=== PATIENT | female | born 1980 | race African-American/Black ===

== ENCOUNTER → 2016-04-01 | Outpatient (CLI) | payer OTHER ==
[2016-01-27 20:58] VITALS: BP 157/85
[~2016-04-01] MED LIST: BENA1TAB6; CALC-98; CYCL10TA2; CYCL5TAB PO; DULO60CA6 PO; HYDR-2762 PO; IBUP-1060; L-NO1TBD14 PO; LEVE10007 PO; LORA10CA; METH4TAB2 PO; MULT-212 PO; NAPR500T8 PO; NITR100C62 PO; OLME1TAB PO; OMEP40CA5; OMEP40CA5 PO; ONDA4TAB7 PO; SIMV40TA3; SIMV40TA3 PO
[2016-04-01 14:53] LABS: % SAT IRON 17 % (15-34); IRON,SERUM 62 ug/dL (50-170)
== END | disposition home or self-care (01) ==
LOC: LAB 13:35
PROVIDERS: ATTEND Internal Medicine Cardiovascular Disease
DX: D64.9 Anemia, unspecified (principal)
CPT/HCPCS: 36415; 82728; 83540; 83550

== ENCOUNTER 2016-04-08 10:21 | Day surgery (SDC) | payer OTHER ==
--- NOTE | 2016-04-07 17:20 | PDOC1 ---
History and Physical Date of Admission Date of Admission DATE: 04/08/16 Identification/Chief Complaint Chief Complaint right knee pain Source Source: Chart review History of Present Illness History of Present Illness Darlene is a 35 year old woman with right knee pain. On 01/27/16 she was leaving work and stepped off the curb and twisted her knee. She immediately went to [facility] Emergency room. They took x-rays and gave her Naprosyn , they informed her she sprained her knee and to follow up with our office. She was last seen here 10/15/15, she had bilateral knee corticosteroid injections. Those injections provided her symptomatic pain relief for about 1 week. She had a right knee MRI on 03/08/15 that showed a medial meniscus tear that she has been managed nonoperatively with periodic cortisone injections. She is now having mechanical symptoms of the meniscus tear with frequent popping, locking, and instability. The pain is along the medial joint line and is dull at rest and sharp with certain movements. The pain is rated at a 4/10 at rest and is an 8/10 at its worst, aggravating by weightbearing. She denies any associating tingling or numbness. Past Medical History Cardiovascular: No pertinent hx Pulmonary: No pertinent hx CENTRAL NERVOUS SYSTEM: Seizure, Other (viral encephalitis - 04/2010) GI: GERD Heme/Onc: Anemia NOS, Iron deficiency Anemia Hepatobiliary: Other Psych: Depression Musculoskeletal: low back pain, Osteoarthritis Rheumatologic: No pertinent hx Renal/: No pertinent hx, UTI Endocrine: No pertinent hx Past Surgical History Past Surgical History: Other (right CTR) Family History Family History: Cancer, Diabetes, High Cholestrol, Hypertension Social History Smoke: No ALCOHOL: rare Drugs: None Current Medications Current Medications Current Medications Ondansetron HCl (Zofran) 4 mg PRN Q6HRS PRN IV Nausea; Start 04/08/16 at 07:00 ; Stop 04/09/16 at 06:59 Fentanyl Citrate (Fentanyl 2ml Vial) 25 mcg PRN Q5MIN PRN IV MILD PAIN; Start 04/08/16 at 07:00; Stop 04/09/16 at 06:59 Fentanyl Citrate (Fentanyl 2ml Vial) 50 mcg PRN Q5MIN PRN IV MODERATE PAIN; Start 04/08/16 at 07:00; Stop 04/09/16 at 06:59 Morphine Sulfate 1 mg 1 mg PRN Q10MIN PRN IV SEVERE PAIN; Start 04/08/16 at 07: 00; Stop 04/09/16 at 06:59 Lactated Ringer's (Iv Lactated Ringers) 1,000 ml @ 30 mls/hr Q24H IV ; Start at 07:00; Stop 04/08/16 at 18:59 Lidocaine HCl 2 ml 1X PRN PRN ID IV START; Start 04/08/16 at 07:00; Stop at 06:59 Hydromorphone HCl (Dilaudid) 0.5 mg PRN Q10MIN PRN IV SEVERE PAIN, Second choice; Start 04/08/16 at 07:00; Stop 04/09/16 at 06:59 Prochlorperazine Edisylate (Compazine) 5 mg PACU PRN PRN IV NAUSEA; Start 04/08 at 07:00; Stop 04/09/16 at 06:59 Active Scripts Active Naproxen 500 Mg Tablet.dr 1 Tab PO BID Reported Ferrous Sulfate 325 Mg Tablet 1 Tab PO BID Loratadine 10 Mg Tablet 90 Mg Benicar Hct 20-12.5 Mg Tablet (Olmesartan/Hydrochlorothiazide) 1 Each Tablet 1 Tab PO DAILY Simvastatin 40 Mg Tablet 1 Tab PO QHS Cymbalta (Duloxetine Hcl) 60 Mg Capsule.dr 1 Cap PO DAILY Omeprazole 40 Mg Capsule.dr 1 Cap PO DAILY Hydrocodone-Apap 7.5-325 (Hydrocodone Bit/Acetaminophen) 1 Each Tablet 1 Tab PO BID PRN Women's Daily Multivitamin (Multivit With Calcium,Iron,Min) 1 Each Tablet 1 Each PO DAILY Calcium + Vitamin D Tablet (Calcium Carbonate/Vitamin D3) 1 Each Tablet DAILY Levetiracetam 1,000 Mg Tablet 1,500 Mg PO BID Allergies Allergies: Coded Allergies: cefditoren (Verified Allergy, Severe, Swelling, 04/04/16) Sulfa (Sulfonamide Antibiotics) (Verified Allergy, Intermediate, Swelling , 04/04/16) ciprofloxacin (Verified Allergy, Intermediate, Swelling, 04/04/16) sulfamethoxazole (Verified Allergy, Intermediate, Swelling, 04/04/16) trimethoprim (Verified Allergy, Intermediate, Swelling, 04/04/16) Physical Exam General: Alert, Oriented X3, Cooperative, No acute distress HEENT: Atraumatic, EOMI Lungs: Normal air movement Heart: RRR Abdomen: Soft Extremities: No clubbing, No cyanosis, Normal pulses, Other (Upon inspection of the right knee, there are no masses. Due to her body habitus, an effusion is difficult to rule out. Mild varus alignment. The right knee shows active range of motion from 3-115 degrees. There is mild crepitus felt with motion and pain at the extremes of motion. There is tenderness to palpation along the medial joint line. The knee is stable to varus and valgus stress, without subluxation or laxity. Quadriceps and hamstring show normal strength of 5/5, with normal muscle tone. Medial Latha's is positive. Ariana testing shows an intact ACL with a firm endpoint. ) Skin: No rashes, No breakdown, No significant lesion Neuro: Normal speech, Sensation intact Psych/Mental Status: Mental status NL, Mood NL VTE Prophylaxis Ordered VTE Prophylaxis Devices: Yes VTE Pharmacological Prophylaxi: Yes Assessment/Plan Assessment/Plan Findings were reviewed and treatment options were discussed with the patient. She had a known medial meniscus tear by MRI on 03/08/15 that has been managed nonoperatively with periodic cortisone injections and home exercises. With her recent twisting injury, she is now having mechanical symptoms. I recommended right knee arthroscopy with medial meniscectomy. We discussed the potential risks of arthroscopic surgery, including risks of bleeding, infection, progressive arthritis, blood clots, or other potential surgical or anesthetic complications. All of her questions were answered and she desires to proceed with surgery. Due to her BMI of 58.89, she is at higher risk for surgery, so this will be done at [facility]. We will schedule this for a mutually convenient date. NIKHIL MATTHEWS Apr 07, 2016 17:20
[~2016-04-08 10:21] MED LIST changes: +BUPIVACAINE-EPI 0.25%-1:200000 50 ML VIAL. ONE; +DULO60CA44; +EPINEPHRINE 30 MG/30 ML VIAL. ONE; +FENTANYL PF 100 MCG/2 ML VIAL. IV PRN; +FERR-26 PO; +HYDROMORPHONE 2 MG/ML VIAL. IV PRN; +IV RINGERS,LACTATED 1000ML 1,000 ML IV SCH; +LIDOCAINE 1% 1 ML SYRINGE. ID PRN; +LORA10TA3; +MORPHINE SULFATE 2 MG/ML DISP.SYRIN. IV PRN; +NAPR500T3; +ONDANSETRON PF 4 MG/2 ML VIAL. IV PRN; +PROCHLORPERAZINE 10 MG/2 ML VIAL. IV PRN
[2016-04-08] MEDS ORDERED: PROM25VI5 PO (10:59)
[2016-04-08 11:07] LABS: BASO # 0.1 x10^3/uL (0.0-0.2); BASO % 1 % (0-3); EOS % 4 % (0-3); HEMATOCRIT 38.2 % (36.0-47.0); HEMOGLOBIN 12.2 g/dL (12.0-15.5); LYMPH # 2.1 x10^3/uL (1.0-4.8); LYMPH % 27 % (24-48); MEAN CORPUSCULAR HEMOGLOBIN 22 pg (25-35); MEAN CORPUSCULAR HGB CONC 32 g/dL (31-37); MEAN CORPUSCULAR VOLUME 70 fL (79-100); MONO % 10 % (0-9); NEUT % 58 % (31-73); PLATELET COUNT 260 x10^3/uL (140-400); RED BLOOD COUNT 5.47 x10^6/uL (3.50-5.40); RED CELL DISTRIBUTION WIDTH 15.3 % (11.5-14.5); WHITE BLOOD COUNT 7.9 x10^3/uL (4.0-11.0)
[2016-04-08 11:08] LABS: CALCIUM 9.1 mg/dL (8.5-10.1); CREATININE 0.7 mg/dL (0.6-1.0); GFR 115.9; POTASSIUM 3.7 mmol/L (3.5-5.1)
[2016-04-08 11:23] LABS: NEG OBC UR NEG; POS OBC UR POS
[2016-04-08] MEDS ORDERED: FENTANYL PF 250 MCG/5 ML VIAL. ONE (11:28)
[2016-04-08] MEDS ORDERED: PROPOFOL 20 ML IV ONE (11:28)
[2016-04-08] MEDS ORDERED: LIDOCAINE 2% 100 MG/5 ML DISP.SYRIN. ONE (11:28)
[2016-04-08] MEDS ORDERED: DEXAMETHASONE SOD PHOS 20 MG/5 ML VIAL. ONE (11:28)
[2016-04-08] MEDS ORDERED: MIDAZOLAM HCL 2 MG/2 ML VIAL. ONE (11:28)
[2016-04-08] MEDS ORDERED: ONDANSETRON PF 4 MG/2 ML VIAL. ONE (11:28)
[2016-04-08] MEDS ORDERED: CEFAZOLIN 1GM IVPB FOR OMNI 50 ML IV ONE ×2 (12:28→14:54)
[2016-04-08] MEDS ORDERED: LIDOCAINE 1% / SOD BICARB 8.4% 20 ML VIAL. IJ ONE ×2 (12:44→13:30)
[2016-04-08 12:54] LABS: PLT ESTIMATE ADEQUATE (ADEQUATE)
[2016-04-08 12:56] LABS: ANISOCYTOSIS PRESENT; HYPOCHROMIA MOD; MICROCYTOSIS MARKED
--- NOTE | 2016-04-08 13:32 | PDOC ---
Exam Sole Leather Cutting Machine Operator Sole Leather Cutting Machine Operator Joseph Mammography Technologist Mammography Technologist Samanta Mcclellan Pre-Procedure Diagnosis Pre-Procedure Diagnosis Right knee pain with meniscal tear. Right knee arthroscopy planned today---no IV access Post-Procedure Diagnosis Post-Procedure Diagnosis Same Procedure Performed Procedure Performed Sono/fluoro guided Power Picc insertion Type of Anesthesia Type of Anesthesia Local Estimated Blood Loss EBL: Minimal Drain/Tubes Drains/Tubes Right brachial vein 5F 2L 45cm Power Picc Condition of Patient Condition of Patient Stable. No apparent complication. Disposition Disposition From IR to OR holding. OK to use Power Picc for blood draws and infusions. Full report to follow. NELSON VARGAS MD Apr 08, 2016 13:32
[2016-04-08] MEDS ORDERED: HYDR-2680 PO (14:39)
[2016-04-08] MEDS ORDERED: CEFAZOLIN 2GM PREMIX 50 ML IV PRN (15:00)
[2016-04-08] MEDS ORDERED: FAMOTIDINE 20 MG/2 ML VIAL ONE (15:05)
[2016-04-08] MEDS ORDERED: DESFLURANE 31 TO 60 MINUTES IH ONE (15:46)
--- NOTE | 2016-04-08 15:54 | PDOC4 ---
Operative Note Operative Note Date of Procedure: April 08, 2016 Preoperative Diagnosis: right knee medial meniscus tear Postoperative Diagnosis: right knee medial and lateral meniscus tears and loose body Procedures Performed: right knee arthroscopy with medial and lateral meniscectomy and loose body removal 5 mm Surgeon: Frandy Carney MD Gravity Prospector: Domonique Iniguez PA-C Anesthesia: General Estimated Blood Loss: 5 mL Specimens: none Drains: none Complications: none Tourniquet time: 28 minutes Indications for Procedure: The patient is a 35-year-old with right knee pain, unrelieved with nonoperative treatment. Exam and MRI are consistent with a meniscus tear. We talked about the risks and benefits of proceeding with an arthroscopic procedure. We talked about potential risks of ongoing pain, progressive arthritis, bleeding, infection, blood clots, or other potential surgical or anesthetic complications. All of the patient's questions about surgery were answered and they desired to proceed. Written consent was obtained. Description of Operation: The patient was identified in the preoperative holding area. The correct right knee was marked by me. The patient was taken to the operating room, where a general anesthetic was used. Preoperative antibiotics were given intravenously. A time-out procedure was performed. A tourniquet was placed on the upper thigh. A lateral thigh brace and leg amezcua was used. The opposite leg was placed in a padded lithotomy leg amezcua. Local anesthetic with epinephrine was injected sterilely into the knee joint. The limb was prepped sterilely and sterile drapes were applied. The limb was exsanguinated with an Esmarch bandage and the tourniquet was inflated to 350 mm Hg. Lateral and medial arthroscopy portals were established. The medial meniscus showed a posterior horn tear with unstable flaps. A meniscectomy was performed with basket forceps and the motorized shaver back to a smooth stable base, and the resection tapered into the middle one-third of the meniscus.The medial tibiofemoral joint showed chondromalacia Outerbridge grade III and IV, and a shaving chondroplasty was performed removing unstable fragments of cartilage with the motorized shaver.The intercondylar notch had a 5 mm loose body, which was impinging in the lateral tibiofemoral joint, and it was removed with a forceps and measured. The ACL was intact. The lateral tibiofemoral joint showed an anterior horn lateral meniscus tear, and a meniscectomy was performed with basket forceps and the motorized shaver back to a smooth stable base.The lateral articular surfaces showed chondromalacia Outerbridge grade III, and a shaving chondroplasty was performed removing unstable fragments of cartilage with the shaver. The patellofemoral joint showed chondromalacia Outerbridge grade II, so a shaving chondroplasty was performed removing loose unstable fragments of articular cartilage. The suprapatellar pouch, medial and lateral gutters were free of additional loose bodies. Copious irrigation was used to drain all meniscal and chondral fragments, and the knee was drained of fluid. Steri- Strips were applied and additional local anesthetic with epinephrine was injected. A bulky sterile dressing was applied and the tourniquet was released. Domonique Iniguez PA-C my assistant food service manager, helped throughout the procedure. She initially helped position the patient on the operating table with a lateral thigh brace, lithotomy leg amezcua and tourniquet. Intraoperatively she manipulated the knee into the correct positions for arthroscopy while I ran the arthroscope in my left hand and shaver probe or other instruments in my right hand. Finally, at the end of the case, she helped remove the lithotomy leg amezcua, thigh brace and tourniquet and helped transfer the patient back to a [facility] in good condition. Needle and sponge counts were correct and there were no apparent complications. Frandy Carney MD 04/08/2016 3:47 PM FRANDY CARNEY MD Apr 08, 2016 15:54
--- NOTE | 2016-04-08 16:17 | RAD ---
Ultrasound and fluoro guided power PICC placement Indication: 35-year-old female with right knee pain and meniscal tear. She is scheduled for right knee arthroscopy today in the OR. She has no peripheral IV access. PICC insertion has been requested for anesthesia. Fluoro time: 0.6 minutes Kerma-Area Product: 4 Gycm2 Anesthesia: Local only Sterility: All elements of maximal sterile barrier technique were utilized, including cap, mask, sterile gown, sterile gloves, large sterile sheet, appropriate hand hygiene, and 2% chlorhexidine for cutaneous antisepsis Procedure: Informed consent was obtained from the patient. She was placed supine on the angiography table. Preliminary ultrasound examination of right upper arm revealed wide patency of right brachial vein, which was documented with a hard copy ultrasound image. Right upper arm was then prepped and draped in the usual sterile fashion, utilizing all elements of maximal sterile barrier technique, as described above. Using aseptic technique, local anesthesia, direct ultrasound guidance, and the micropuncture system, successful percutaneous entry was achieved into right brachial vein at the level of distal humerus. A 5 Lebanese dual lumen power PICC was trimmed to 45 cm in length, was inserted through a 5 Lebanese peel-away sheath, and was easily advanced centrally under fluoroscopic control. Tip of the power PICC was positioned at upper right atrium. This was documented with a single fluoroscopic spot image. The PICC was then demonstrated to flush and aspirate normally, and was secured at the skin exit site utilizing suture and sterile dressing. The patient tolerated the procedure well without apparent complication. Impression: Successful, uneventful ultrasound and fluoro guided placement of right brachial vein 5 Lebanese dual-lumen 45 cm power PICC, as described.
[2016-04-08] MEDS ORDERED: HYDROCODONE/APAP 10/325 TABLET. PO ONE (16:30)
[2016-04-08 17:15] VITALS: BP 179/95
== END 2016-04-08 17:42 | disposition home or self-care (01) ==
LOC: SURG 10:21
PROVIDERS: ATTEND Orthopaedic Surgery
DX: S83.241A Other tear of medial meniscus, current injury, right knee, initial encounter (principal); X58.XXXA Exposure to other specified factors, initial encounter; Y93.9 Activity, unspecified; Y92.9 Unspecified place or not applicable; Y99.9 Unspecified external cause status; S83.281A Other tear of lateral meniscus, current injury, right knee, initial encounter; R56.9 Unspecified convulsions; E78.00 Pure hypercholesterolemia, unspecified; I10 Essential (primary) hypertension; E66.9 Obesity, unspecified; K21.9 Gastro-esophageal reflux disease without esophagitis; Z90.721 Acquired absence of ovaries, unilateral; M19.90 Unspecified osteoarthritis, unspecified site; F41.0 Panic disorder [episodic paroxysmal anxiety]; F41.9 Anxiety disorder, unspecified; F32.9 Major depressive disorder, single episode, unspecified; F17.200 Nicotine dependence, unspecified, uncomplicated; D64.9 Anemia, unspecified; M94.261 Chondromalacia, right knee
CPT/HCPCS: 29880; 36415; 36569; 76937; 77001; 80048; 81025; 85007; 85027; C1751; C1892; J0171; J0690; J1100; J2250; J2405; J2704; J3010; S0028; C1782; J2001

== ENCOUNTER → 2016-04-24 | Outpatient (CLI) | payer OTHER ==
[2016-04-08 17:15] VITALS: BP 179/95
[~2016-04-24] MED LIST changes: -BUPIVACAINE-EPI 0.25%-1:200000 50 ML VIAL. ONE; -EPINEPHRINE 30 MG/30 ML VIAL. ONE; -FENTANYL PF 100 MCG/2 ML VIAL. IV PRN; +HYDR-2680 PO; -HYDROMORPHONE 2 MG/ML VIAL. IV PRN; -IV RINGERS,LACTATED 1000ML 1,000 ML IV SCH; -LIDOCAINE 1% 1 ML SYRINGE. ID PRN; -MORPHINE SULFATE 2 MG/ML DISP.SYRIN. IV PRN; -ONDANSETRON PF 4 MG/2 ML VIAL. IV PRN; -PROCHLORPERAZINE 10 MG/2 ML VIAL. IV PRN; +PROM25VI5 PO
[2016-04-24 15:50] LABS: HEMATOCRIT 37.7 % (36.0-47.0); HEMOGLOBIN 11.6 g/dL (12.0-15.5); RETIC COUNT 1.5 % (0.5-2.5)
== END | disposition home or self-care (01) ==
LOC: LAB 15:33
PROVIDERS: ATTEND Internal Medicine Cardiovascular Disease
DX: D64.9 Anemia, unspecified (principal)
CPT/HCPCS: 36415; 85014; 85018; 85045

== ENCOUNTER 2016-05-04 14:31 | Observation (INO) | payer OTHER ==
[~2016-05-04] VITALS: Ht 157.5 cm; Wt 147.4 kg
[2016-05-04 16:39] LABS: BASO % 0 % (0-3); EOS % 5 % (0-3); HEMATOCRIT 37.5 % (36.0-47.0); HEMOGLOBIN 11.7 g/dL (12.0-15.5); LYMPH # 1.8 x10^3/uL (1.0-4.8); LYMPH % 28 % (24-48); MEAN CORPUSCULAR HEMOGLOBIN 22 pg (25-35); MEAN CORPUSCULAR HGB CONC 31 g/dL (31-37); MEAN CORPUSCULAR VOLUME 70 fL (79-100); MONO % 10 % (0-9); NEUT % 57 % (31-73); PLATELET COUNT 268 x10^3/uL (140-400); RED BLOOD COUNT 5.33 x10^6/uL (3.50-5.40); RED CELL DISTRIBUTION WIDTH 15.6 % (11.5-14.5); WHITE BLOOD COUNT 6.3 x10^3/uL (4.0-11.0)
[2016-05-04 16:59] LABS: CALCIUM 9.4 mg/dL (8.5-10.1); CREATININE 0.7 mg/dL (0.6-1.0); GFR 115.9; POTASSIUM 3.7 mmol/L (3.5-5.1)
[2016-05-04 17:02] LABS: ALBUMIN 3.2 g/dL (3.4-5.0)
[2016-05-04 17:50] LABS: NEG OBC UR NEG; POS OBC UR POS
[2016-05-04 17:54] LABS: BILIRUBIN,URINE NEGATIVE (NEG); GLUCOSE,URINE NEGATIVE (NEG); NITRITE,URINE NEGATIVE (NEG); PROTEIN,URINE NEGATIVE (NEG-TRACE)
[2016-05-04 18:03] LABS: BACTERIA,URINE MODERATE /HPF (0-FEW); SQUAMOUS EPITHELIAL CELL,UR MANY /LPF; WBC,URINE OCC /HPF (0-4)
[2016-05-04 18:09] LABS: ALBUMIN/GLOBULIN RATIO 0.8 (1.0-1.7); TOTAL BILIRUBIN 0.2 mg/dL (0.2-1.0); TOTAL PROTEIN 7.1 g/dL (6.4-8.2)
[2016-05-04] MEDS ORDERED: ONDANSETRON PF 4 MG/2 ML VIAL. IV PRN ×2 (18:15→18:45)
[2016-05-04] MEDS ORDERED: MORPHINE SULFATE 2 MG/ML DISP.SYRIN. IV PRN (18:15)
[2016-05-04 18:18] LABS: HYPOCHROMIA SLIGHT; MICROCYTOSIS MOD; PLT ESTIMATE ADEQUATE (ADEQUATE)
--- NOTE | 2016-05-04 18:19 | PHYS DOC ---
Past Medical History Past Medical History: Arthritis, Depression, GERD, High Cholesterol, Hypertension, Seizure, Additional Disease Additional Past Medical Histor: viral encephalitis, sleep apnea, CRS, seasonal allergies,obesity Past Surgical History: Other Additional Past Surgical Histo: carpal tunnel, removal of rt ovary and tube Alcohol Use: Rarely Drug Use: Opiates Adult General Chief Complaint Chief Complaint: SEIZURE HPI HPI 35-year-old female presenting the emergency department today after having a seizure. She has a history of epilepsy however has been having worsening seizures over the past few weeks. She is having them more frequently. She always reports returning to baseline. She denies any recent infections cough nausea or vomiting. Onset weeks. Duration less than 2 minutes. No alleviating factors present. She reports taking her seizure medications as prescribed. She currently has an appointment with her neurologist in about 6 days. Review of review of systems is negative for chest pain shortness of breath nausea vomiting fevers or chills. All other review of systems is negative unless otherwise noted in history of present illness. Review of Systems Review of Systems SEE ABOVE. Allergies Allergies Allergies Coded Allergies Type Severity Reaction Last Updated Verified cefditoren Allergy Severe Swelling 04/08/16 Yes Sulfa (Sulfonamide Antibiotics) Allergy Intermediate Swelling 04/08/16 Yes ciprofloxacin Allergy Intermediate Swelling 04/08/16 Yes sulfamethoxazole Allergy Intermediate Swelling 04/08/16 Yes trimethoprim Allergy Intermediate Swelling 04/08/16 Yes Physical Exam Physical Exam Constitutional: Well developed, well nourished, no acute distress, non-toxic appearance. HENT: Normocephalic, atraumatic, bilateral external ears normal, oropharynx moist, no oral exudates, nose normal. [] Eyes: PERRLA, EOMI, conjunctiva normal, no discharge. Neck: Normal range of motion, no tenderness, supple, no stridor. [] Cardiovascular:Heart rate regular rhythm, no murmur Lungs & Thorax: Bilateral breath sounds clear to auscultation [] Abdomen: Bowel sounds normal, soft, no tenderness, no masses, no pulsatile masses. Skin: Warm, dry, no erythema, no rash. [] Back: No tenderness, no CVA tenderness. [] Extremities: No tenderness, no cyanosis, no clubbing, ROM intact, no edema. Neurologic: Neuro exam: Mental status: Awake oriented and alert x3 Cranial nerves: Extraocular movements intact, eyebrows roland bilaterally smile symmetric, uvula elevation, shoulder shrug intact, tongue protrusion normal Sensation: equal and normal in all extremities Strength: 5/5 in upper and lower extremities bilaterally Psychologic: Affect normal, judgement normal, mood normal. Current Patient Data Vital Signs Vital Signs Date Time Temp Pulse Resp B/P Pulse Ox O2 Delivery O2 Flow Rate FiO2 05/04/16 17:03 80 16 113/57 98 Room Air 05/04/16 15:00 98.1 98.1 Lab Values Laboratory Tests Test 05/04/16 15:30 05/04/16 17:04 White Blood Count 6.3x10^3/uL (4.0-11.0) Red Blood Count 5.33x10^6/uL (3.50-5.40) Hemoglobin 11.7g/dL (12.0-15.5) L Hematocrit 37.5% (36.0-47.0) Mean Corpuscular Volume 70fL (79-100) L Mean Corpuscular Hemoglobin 22pg (25-35) L Mean Corpuscular Hemoglobin Concent 31g/dL (31-37) Red Cell Distribution Width 15.6% (11.5-14.5) H Platelet Count 268x10^3/uL (140-400) Neutrophils (%) (Auto) 57% (31-73) Lymphocytes (%) (Auto) 28% (24-48) Monocytes (%) (Auto) 10% (0-9) H Eosinophils (%) (Auto) 5% (0-3) H Basophils (%) (Auto) 0% (0-3) Neutrophils # (Auto) 3.6x10^3uL (1.8-7.7) Lymphocytes # (Auto) 1.8x10^3/uL (1.0-4.8) Monocytes # (Auto) 0.6x10^3/uL (0.0-1.1) Eosinophils # (Auto) 0.3x10^3/uL (0.0-0.7) Basophils # (Auto) 0.0x10^3/uL (0.0-0.2) Platelet Estimate Adequate (ADEQUATE) Hypochromasia Slight Microcytosis Mod Sodium Level 142mmol/L (136-145) Potassium Level 3.7mmol/L (3.5-5.1) Chloride Level 104mmol/L (98-107) Carbon Dioxide Level 33mmol/L (21-32) H Anion Gap 5 (6-14) L Blood Urea Nitrogen 10mg/dL (7-20) Creatinine 0.7mg/dL (0.6-1.0) Estimated GFR (Cockcroft-Gault) 115.9 BUN/Creatinine Ratio 14 (6-20) Glucose Level 104mg/dL (70-99) H Calcium Level 9.4mg/dL (8.5-10.1) Total Bilirubin 0.2mg/dL (0.2-1.0) Aspartate Amino Transferase (AST) 14U/L (15-37) L Alanine Aminotransferase (ALT) 15U/L (14-59) Alkaline Phosphatase 70U/L (46-116) Creatine Kinase 99U/L (26-192) Creatine Kinase MB (Mass) 0.6ng/mL (0.0-3.6) Creatine Kinase MB Relative Index 0.6% (0-4) Total Protein 7.1g/dL (6.4-8.2) Albumin 3.2g/dL (3.4-5.0) L Albumin/Globulin Ratio 0.8 (1.0-1.7) L Urine Collection Type Unknown Urine Color Yellow Urine Clarity Clear Urine pH 7.0 Urine Specific [place] 1.025 Urine Protein Negativemg/dL (NEG-TRACE) Urine Glucose (UA) Negativemg/dL (NEG) Urine Ketones (Stick) Negativemg/dL (NEG) Urine Blood Large (NEG) Urine Nitrite Negative (NEG) Urine Bilirubin Negative (NEG) Urine Urobilinogen Dipstick 1.0mg/dL (0.2 mg/dL) Urine Leukocyte Esterase Trace (NEG) Urine RBC 6-10/HPF (0-2) Urine WBC Occ/HPF (0-4) Urine Squamous Epithelial Cells Many/LPF Urine Bacteria Moderate/HPF (0-FEW) Urine Mucus Marked/LPF Urine Test Negative (NEG) Laboratory Tests 05/04/16 15:30 Laboratory Tests 05/04/16 15:30 EKG EKG [] Radiology/Procedures Radiology/Procedures [] Course & Med Decision Making Course & Med Decision Making Pertinent Labs and Imaging studies reviewed. (See chart for details) 35 yo F presenting to the ED with worsening epilepsy refractory to current medical regimen over the past few weeks who experience another seizure today. Returned to baseline. Discussed risk benefits with pt and subsequently admitted the pt for further evaluation workup and care. Dragon Disclaimer Dragon Disclaimer This electronic medical record was generated, in whole or in part, using a voice recognition dictation system. Departure Departure Impression: Primary Impression: Seizure Disposition: ADMITTED INPATIENT Admitting Physician: Duy Salvador Condition: STABLE Referrals: CÉSAR GIPSON MD (PCP) ERASMO HYMAN MD May 04, 2016 18:19
--- NOTE | 2016-05-04 18:42 | PDOC1 ---
History and Physical Date of Admission Date of Admission 05/04/16 Identification/Chief Complaint Chief Complaint seizure Problems: Source Source: Chart review, Patient History of Present Illness History of Present Illness 35yo F, with h/o SEIZURE, as per ERP was epilepsy, come for seizure. Pt said he had + EEG long time ago, last one was neg. takes keppra 1500 bid, no miss dose. She has not seen neuro for a while, plan to see a new neuro next week. She said usually has seizure once a month, usually just passing out, not clonic tonic seizure, lasting for minutes and has 1-2 min post ictal confusion. She said she has more seizure recently, this week at least 3 times. Today early am, she was bed, felt had seizure, lost urine control, not bit her tounge, with some headache which is new to her. otherwise feels ok, no fever, chills, V, chest pain or sob. + nausea. Past Medical History Cardiovascular: No pertinent hx Pulmonary: No pertinent hx CENTRAL NERVOUS SYSTEM: Seizure, Other GI: GERD Heme/Onc: Anemia NOS, Iron deficiency Anemia Hepatobiliary: Other Psych: Depression Rheumatologic: No pertinent hx Renal/: No pertinent hx, UTI Endocrine: No pertinent hx Past Surgical History Past Surgical History: Other Family History Family History: Cancer Social History Smoke: No ALCOHOL: rare Drugs: None Current Problem List Problem List Problems Medical Problems: (1) Seizure Status: Acute Current Medications Current Medications Current Medications Medications (Trade) Dose Ordered Sig/Renuka Start Time Stop Time Status Last Admin Dose Admin Morphine Sulfate 2 mg PRN Q2HR PRN 05/04/16 18:15 05/05/16 18:14 Ondansetron HCl (Zofran) 4 mg PRN Q8HRS PRN 05/04/16 18:15 05/05/16 18:14 Allergies Allergies Allergies Coded Allergies Type Severity Reaction Last Updated Verified cefditoren Allergy Severe Swelling 04/08/16 Yes Sulfa (Sulfonamide Antibiotics) Allergy Intermediate Swelling 04/08/16 Yes ciprofloxacin Allergy Intermediate Swelling 04/08/16 Yes sulfamethoxazole Allergy Intermediate Swelling 04/08/16 Yes trimethoprim Allergy Intermediate Swelling 04/08/16 Yes ROS Review of System CONSTITUTIONAL: No fever or chills EYES: No recent changes SKIN: No rash or itching CARDIOVASCULAR: No chest pain, syncope, palpitations, or edema RESPIRATORY: No SOB or cough GASTROINTESTINAL: No nausea, vomiting or abdominal pain NEUROLOGICAL: No headaches or weakness ENDOCRINE: No cold or heat intolerance GENITOURINARY: No urgency or frequency of urination MUSCULOSKELETAL: No back pain or joint pain LYMPHATICS: No enlarged lymph nodes PSYCHIATRIC: No anxiety or depression Physical Exam Physical Exam GEN.: No apparent distress. Alert and oriented. HEENT: Head is normocephalic, atraumatic NECK: Supple. LUNGS: Clear to auscultation. HEART: RRR, S1, S2 present. Peripheral pulses intact ABDOMEN: Soft, nontender. Positive bowel sounds. EXTREMITIES: Without any cyanosis. NEUROLOGIC: Normal speech, normal tone PSYCHIATRIC: Normal affect, normal mood. SKIN: No ulcerations Vitals Vitals Vital Signs Date Time Temp Pulse Resp B/P Pulse Ox O2 Delivery O2 Flow Rate FiO2 05/04/16 17:03 80 16 113/57 98 Room Air 05/04/16 15:00 98.1 98.1 Labs Labs Laboratory Tests Test 05/04/16 15:30 05/04/16 17:04 White Blood Count 6.3x10^3/uL (4.0-11.0) Red Blood Count 5.33x10^6/uL (3.50-5.40) Hemoglobin 11.7g/dL (12.0-15.5) Hematocrit 37.5% (36.0-47.0) Mean Corpuscular Volume 70fL (79-100) Mean Corpuscular Hemoglobin 22pg (25-35) Mean Corpuscular Hemoglobin Concent 31g/dL (31-37) Red Cell Distribution Width 15.6% (11.5-14.5) Platelet Count 268x10^3/uL (140-400) Neutrophils (%) (Auto) 57% (31-73) Lymphocytes (%) (Auto) 28% (24-48) Monocytes (%) (Auto) 10% (0-9) Eosinophils (%) (Auto) 5% (0-3) Basophils (%) (Auto) 0% (0-3) Neutrophils # (Auto) 3.6x10^3uL (1.8-7.7) Lymphocytes # (Auto) 1.8x10^3/uL (1.0-4.8) Monocytes # (Auto) 0.6x10^3/uL (0.0-1.1) Eosinophils # (Auto) 0.3x10^3/uL (0.0-0.7) Basophils # (Auto) 0.0x10^3/uL (0.0-0.2) Platelet Estimate Adequate (ADEQUATE) Hypochromasia Slight Microcytosis Mod Sodium Level 142mmol/L (136-145) Potassium Level 3.7mmol/L (3.5-5.1) Chloride Level 104mmol/L (98-107) Carbon Dioxide Level 33mmol/L (21-32) Anion Gap 5 (6-14) Blood Urea Nitrogen 10mg/dL (7-20) Creatinine 0.7mg/dL (0.6-1.0) Estimated GFR (Cockcroft-Gault) 115.9 BUN/Creatinine Ratio 14 (6-20) Glucose Level 104mg/dL (70-99) Calcium Level 9.4mg/dL (8.5-10.1) Total Bilirubin 0.2mg/dL (0.2-1.0) Aspartate Amino Transf (AST/SGOT) 14U/L (15-37) Alanine Aminotransferase (ALT/SGPT) 15U/L (14-59) Alkaline Phosphatase 70U/L (46-116) Total Protein 7.1g/dL (6.4-8.2) Albumin 3.2g/dL (3.4-5.0) Albumin/Globulin Ratio 0.8 (1.0-1.7) Urine Collection Type Unknown Urine Color Yellow Urine Clarity Clear Urine pH 7.0 Urine Specific [place] 1.025 Urine Protein Negativemg/dL (NEG-TRACE) Urine Glucose (UA) Negativemg/dL (NEG) Urine Ketones (Stick) Negativemg/dL (NEG) Urine Blood Large (NEG) Urine Nitrite Negative (NEG) Urine Bilirubin Negative (NEG) Urine Urobilinogen Dipstick 1.0mg/dL (0.2 mg/dL) Urine Leukocyte Esterase Trace (NEG) Urine RBC 6-10/HPF (0-2) Urine WBC Occ/HPF (0-4) Urine Squamous Epithelial Cells Many/LPF Urine Bacteria Moderate/HPF (0-FEW) Urine Mucus Marked/LPF Urine Test Negative (NEG) Laboratory Tests Test 05/04/16 15:30 05/04/16 17:04 White Blood Count 6.3x10^3/uL (4.0-11.0) Red Blood Count 5.33x10^6/uL (3.50-5.40) Hemoglobin 11.7g/dL (12.0-15.5) Hematocrit 37.5% (36.0-47.0) Mean Corpuscular Volume 70fL (79-100) Mean Corpuscular Hemoglobin 22pg (25-35) Mean Corpuscular Hemoglobin Concent 31g/dL (31-37) Red Cell Distribution Width 15.6% (11.5-14.5) Platelet Count 268x10^3/uL (140-400) Neutrophils (%) (Auto) 57% (31-73) Lymphocytes (%) (Auto) 28% (24-48) Monocytes (%) (Auto) 10% (0-9) Eosinophils (%) (Auto) 5% (0-3) Basophils (%) (Auto) 0% (0-3) Neutrophils # (Auto) 3.6x10^3uL (1.8-7.7) Lymphocytes # (Auto) 1.8x10^3/uL (1.0-4.8) Monocytes # (Auto) 0.6x10^3/uL (0.0-1.1) Eosinophils # (Auto) 0.3x10^3/uL (0.0-0.7) Basophils # (Auto) 0.0x10^3/uL (0.0-0.2) Platelet Estimate Adequate (ADEQUATE) Hypochromasia Slight Microcytosis Mod Sodium Level 142mmol/L (136-145) Potassium Level 3.7mmol/L (3.5-5.1) Chloride Level 104mmol/L (98-107) Carbon Dioxide Level 33mmol/L (21-32) Anion Gap 5 (6-14) Blood Urea Nitrogen 10mg/dL (7-20) Creatinine 0.7mg/dL (0.6-1.0) Estimated GFR (Cockcroft-Gault) 115.9 BUN/Creatinine Ratio 14 (6-20) Glucose Level 104mg/dL (70-99) Calcium Level 9.4mg/dL (8.5-10.1) Total Bilirubin 0.2mg/dL (0.2-1.0) Aspartate Amino Transf (AST/SGOT) 14U/L (15-37) Alanine Aminotransferase (ALT/SGPT) 15U/L (14-59) Alkaline Phosphatase 70U/L (46-116) Total Protein 7.1g/dL (6.4-8.2) Albumin 3.2g/dL (3.4-5.0) Albumin/Globulin Ratio 0.8 (1.0-1.7) Urine Collection Type Unknown Urine Color Yellow Urine Clarity Clear Urine pH 7.0 Urine Specific [place] 1.025 Urine Protein Negativemg/dL (NEG-TRACE) Urine Glucose (UA) Negativemg/dL (NEG) Urine Ketones (Stick) Negativemg/dL (NEG) Urine Blood Large (NEG) Urine Nitrite Negative (NEG) Urine Bilirubin Negative (NEG) Urine Urobilinogen Dipstick 1.0mg/dL (0.2 mg/dL) Urine Leukocyte Esterase Trace (NEG) Urine RBC 6-10/HPF (0-2) Urine WBC Occ/HPF (0-4) Urine Squamous Epithelial Cells Many/LPF Urine Bacteria Moderate/HPF (0-FEW) Urine Mucus Marked/LPF Urine Test Negative (NEG) VTE Prophylaxis Ordered VTE Prophylaxis Devices: Yes VTE Pharmacological Prophylaxi: Yes Assessment/Plan Assessment/Plan 1. seizure 2. HTN 3. hld 4. OA 5. depression 6. morbid obesity bmi 59 7. loki plan: 1. neuro consult, may need EEG 2. check ckmb, la, keppra level 3. cont home dose 4. FALL Precaution ptot dvt ppx DRUG Screen DEREK SNEED MD May 04, 2016 18:42
[2016-05-04] MEDS ORDERED: LORAZEPAM 2 MG/ML VIAL IV PRN (18:45)
[2016-05-04] MEDS ORDERED: ACETAMINOPHEN 325 MG TABLET. PO PRN (18:45)
[2016-05-04 19:13] LABS: CKMB INDEX 0.6 % (0-4); CKMB MASS 0.6 ng/mL (0.0-3.6)
[2016-05-04] MEDS: FERROUS SULFATE 325 MG TABLET PO SCH (20:05)
[2016-05-04] MEDS: SIMVASTATIN 40 MG TABLET. PO SCH (20:05)
[2016-05-04] MEDS: LEVETIRACETAM 500 MG TABLET PO SCH (20:05)
[2016-05-04] MEDS: ENOXAPARIN ** NOTE DOSE ** SYRINGE SQ SCH (20:08)
[2016-05-04] MEDS: HYDROCODONE/APAP 10/325 TABLET. PO PRN (20:34)
[2016-05-04 21:00] VITALS: BP 114/63
[2016-05-04] MEDS ORDERED: ENOXAPARIN 40 MG/0.4 ML DISP.SYRIN. SQ SCH (21:00)
[2016-05-04 23:00] VITALS: BP 120/62
[2016-05-05 03:00] VITALS: BP 103/58
[2016-05-05 04:51] LABS: CALCIUM 8.8 mg/dL (8.5-10.1); CREATININE 0.6 mg/dL (0.6-1.0); GFR 138.5; POTASSIUM 3.8 mmol/L (3.5-5.1)
[2016-05-05 04:55] LABS: BASO % 1 % (0-3); EOS % 6 % (0-3); HEMATOCRIT 34.5 % (36.0-47.0); HEMOGLOBIN 10.9 g/dL (12.0-15.5); LYMPH # 2.6 x10^3/uL (1.0-4.8); LYMPH % 35 % (24-48); MEAN CORPUSCULAR HEMOGLOBIN 22 pg (25-35); MEAN CORPUSCULAR HGB CONC 32 g/dL (31-37); MEAN CORPUSCULAR VOLUME 70 fL (79-100); MONO % 10 % (0-9); NEUT % 48 % (31-73); PLATELET COUNT 259 x10^3/uL (140-400); RED BLOOD COUNT 4.94 x10^6/uL (3.50-5.40); RED CELL DISTRIBUTION WIDTH 15.8 % (11.5-14.5); WHITE BLOOD COUNT 7.6 x10^3/uL (4.0-11.0)
[2016-05-05 07:00] VITALS: BP 117/84
[2016-05-05] MEDS: ENOXAPARIN ** NOTE DOSE ** SYRINGE SQ SCH ×2 (09:00→21:08)
[2016-05-05] MEDS: FERROUS SULFATE 325 MG TABLET PO SCH ×2 (09:18→17:44)
[2016-05-05] MEDS: HYDROCHLOROTHIAZIDE 12.5 MG CAPSULE. PO SCH (09:19)
[2016-05-05] MEDS: LOSARTAN POTASSIUM 50 MG TABLET. PO SCH (09:19)
[2016-05-05] MEDS: LEVETIRACETAM 500 MG TABLET PO SCH ×2 (09:20→21:11)
[2016-05-05] MEDS: DULOXETINE HCL 30 MG CAPSULE.DR. PO SCH (09:20)
[2016-05-05] MEDS: PANTOPRAZOLE 40 MG TABLET. PO SCH (09:20)
[2016-05-05 11:00] VITALS: BP 147/74
[2016-05-05 11:22] LABS: BARBITURATES NEG (NEG); BENZODIAZEPINES NEG (NEG); CANNABINOIDS NEG (NEG); COCAINE NEG (NEG); METHADONE NEG (NEG); OPIATES POS (NEG); PHENCYCLIDINE NEG (NEG)
[2016-05-05 11:23] LABS: ETHANOL, URINE NEG (NEG)
--- NOTE | 2016-05-05 12:24 | RAD ---
Indication seizure, mental status changes. Note is made of a previous examination 03/01/2013. The calvarium appears unremarkable. The visualized paranasal sinuses appear normal. There is no subdural or epidural hematoma. The ventricles and sulci are normal. No mass or midline shift is seen. Acute finding or significant change when compared to the previous exam is not seen. IMPRESSION: No acute or focal process. No significant change PQRS Compliance Statement: One or more of the following individualized dose reduction techniques were utilized for this examination: 1. Automated exposure control 2. Adjustment of the mA and/or kV according to patient size 3. Use of iterative reconstruction technique
--- NOTE | 2016-05-05 12:48 | PDOC ---
PROGRESS NOTES Chief Complaint Chief Complaint Seizure 1. seizure 2. HTN 3. hld 4. OA 5. depression 6. morbid obesity bmi 59 7. loki 8. anemia 9. GERD History of Present Illness History of Present Illness Patient resting comfortably in bed VSS DW RN Vitals Vitals Vital Signs Date Time Temp Pulse Resp B/P Pulse Ox O2 Delivery O2 Flow Rate FiO2 05/05/16 11:00 97.7 78 20 147/74 98 Room Air 97.7 Physical Exam General: Alert, Oriented X3, Cooperative Heart: Regular rate, No murmurs Lungs: Clear, Other (no wheezing or crackles) Abdomen: Normal bowel sounds, Soft Extremities: No cyanosis, No edema Skin: No rashes, No breakdown Labs LABS Laboratory Tests Test 05/04/16 15:30 05/04/16 17:04 05/04/16 18:55 05/05/16 04:02 White Blood Count 6.3x10^3/uL (4.0-11.0) 7.6x10^3/uL (4.0-11.0) Red Blood Count 5.33x10^6/uL (3.50-5.40) 4.94x10^6/uL (3.50-5.40) Hemoglobin 11.7g/dL (12.0-15.5) 10.9g/dL (12.0-15.5) Hematocrit 37.5% (36.0-47.0) 34.5% (36.0-47.0) Mean Corpuscular Volume 70fL (79-100) 70fL (79-100) Mean Corpuscular Hemoglobin 22pg (25-35) 22pg (25-35) Mean Corpuscular Hemoglobin Concent 31g/dL (31-37) 32g/dL (31-37) Red Cell Distribution Width 15.6% (11.5-14.5) 15.8% (11.5-14.5) Platelet Count 268x10^3/uL (140-400) 259x10^3/uL (140-400) Neutrophils (%) (Auto) 57% (31-73) 48% (31-73) Lymphocytes (%) (Auto) 28% (24-48) 35% (24-48) Monocytes (%) (Auto) 10% (0-9) 10% (0-9) Eosinophils (%) (Auto) 5% (0-3) 6% (0-3) Basophils (%) (Auto) 0% (0-3) 1% (0-3) Neutrophils # (Auto) 3.6x10^3uL (1.8-7.7) 3.6x10^3uL (1.8-7.7) Lymphocytes # (Auto) 1.8x10^3/uL (1.0-4.8) 2.6x10^3/uL (1.0-4.8) Monocytes # (Auto) 0.6x10^3/uL (0.0-1.1) 0.8x10^3/uL (0.0-1.1) Eosinophils # (Auto) 0.3x10^3/uL (0.0-0.7) 0.5x10^3/uL (0.0-0.7) Basophils # (Auto) 0.0x10^3/uL (0.0-0.2) 0.0x10^3/uL (0.0-0.2) Platelet Estimate Adequate (ADEQUATE) Hypochromasia Slight Microcytosis Mod Sodium Level 142mmol/L (136-145) 141mmol/L (136-145) Potassium Level 3.7mmol/L (3.5-5.1) 3.8mmol/L (3.5-5.1) Chloride Level 104mmol/L (98-107) 104mmol/L (98-107) Carbon Dioxide Level 33mmol/L (21-32) 32mmol/L (21-32) Anion Gap 5 (6-14) 5 (6-14) Blood Urea Nitrogen 10mg/dL (7-20) 11mg/dL (7-20) Creatinine 0.7mg/dL (0.6-1.0) 0.6mg/dL (0.6-1.0) Estimated GFR (Cockcroft-Gault) 115.9 138.5 BUN/Creatinine Ratio 14 (6-20) Glucose Level 104mg/dL (70-99) 94mg/dL (70-99) Calcium Level 9.4mg/dL (8.5-10.1) 8.8mg/dL (8.5-10.1) Total Bilirubin 0.2mg/dL (0.2-1.0) Aspartate Amino Transf (AST/SGOT) 14U/L (15-37) Alanine Aminotransferase (ALT/SGPT) 15U/L (14-59) Alkaline Phosphatase 70U/L (46-116) Creatine Kinase 99U/L (26-192) Creatine Kinase MB (Mass) 0.6ng/mL (0.0-3.6) Creatine Kinase MB Relative Index 0.6% (0-4) Total Protein 7.1g/dL (6.4-8.2) Albumin 3.2g/dL (3.4-5.0) Albumin/Globulin Ratio 0.8 (1.0-1.7) Urine Collection Type Unknown Urine Color Yellow Urine Clarity Clear Urine pH 7.0 Urine Specific [place] 1.025 Urine Protein Negativemg/dL (NEG-TRACE) Urine Glucose (UA) Negativemg/dL (NEG) Urine Ketones (Stick) Negativemg/dL (NEG) Urine Blood Large (NEG) Urine Nitrite Negative (NEG) Urine Bilirubin Negative (NEG) Urine Urobilinogen Dipstick 1.0mg/dL (0.2 mg/dL) Urine Leukocyte Esterase Trace (NEG) Urine RBC 6-10/HPF (0-2) Urine WBC Occ/HPF (0-4) Urine Squamous Epithelial Cells Many/LPF Urine Bacteria Moderate/HPF (0-FEW) Urine Mucus Marked/LPF Urine Test Negative (NEG) Lactic Acid Level 1.1mmol/L (0.4-2.0) Test 05/05/16 10:20 Urine Opiates Screen Pos (NEG) Urine Methadone Screen Neg (NEG) Urine Barbiturates Neg (NEG) Urine Phencyclidine Screen Neg (NEG) Urine Amphetamine/Methamphetamine Neg (NEG) Urine Benzodiazepines Screen Neg (NEG) Urine Cocaine Screen Neg (NEG) Urine Cannabinoids Screen Neg (NEG) Urine Ethyl Alcohol Neg (NEG) Review of Systems Review of Systems Denies fever Denies rash Assessment and Plan Assessmemt and Plan Problems Medical Problems: (1) Seizure Status: Acute Assessment/Plan 1. seizure 2. HTN 3. hld 4. OA 5. depression 6. morbid obesity bmi 59 7. loki 8. anemia 9. GERD plan: 1. neuro consult, may need EEG - await neuro input 2. check ckmb, la, keppra level 3. cont home dose 4. 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 Labs Laboratory Tests Test 05/04/16 15:30 05/04/16 17:04 05/04/16 18:55 05/05/16 04:02 White Blood Count 6.3x10^3/uL (4.0-11.0) 7.6x10^3/uL (4.0-11.0) Red Blood Count 5.33x10^6/uL (3.50-5.40) 4.94x10^6/uL (3.50-5.40) Hemoglobin 11.7g/dL (12.0-15.5) 10.9g/dL (12.0-15.5) Hematocrit 37.5% (36.0-47.0) 34.5% (36.0-47.0) Mean Corpuscular Volume 70fL (79-100) 70fL (79-100) Mean Corpuscular Hemoglobin 22pg (25-35) 22pg (25-35) Mean Corpuscular Hemoglobin Concent 31g/dL (31-37) 32g/dL (31-37) Red Cell Distribution Width 15.6% (11.5-14.5) 15.8% (11.5-14.5) Platelet Count 268x10^3/uL (140-400) 259x10^3/uL (140-400) Neutrophils (%) (Auto) 57% (31-73) 48% (31-73) Lymphocytes (%) (Auto) 28% (24-48) 35% (24-48) Monocytes (%) (Auto) 10% (0-9) 10% (0-9) Eosinophils (%) (Auto) 5% (0-3) 6% (0-3) Basophils (%) (Auto) 0% (0-3) 1% (0-3) Neutrophils # (Auto) 3.6x10^3uL (1.8-7.7) 3.6x10^3uL (1.8-7.7) Lymphocytes # (Auto) 1.8x10^3/uL (1.0-4.8) 2.6x10^3/uL (1.0-4.8) Monocytes # (Auto) 0.6x10^3/uL (0.0-1.1) 0.8x10^3/uL (0.0-1.1) Eosinophils # (Auto) 0.3x10^3/uL (0.0-0.7) 0.5x10^3/uL (0.0-0.7) Basophils # (Auto) 0.0x10^3/uL (0.0-0.2) 0.0x10^3/uL (0.0-0.2) Platelet Estimate Adequate (ADEQUATE) Hypochromasia Slight Microcytosis Mod Sodium Level 142mmol/L (136-145) 141mmol/L (136-145) Potassium Level 3.7mmol/L (3.5-5.1) 3.8mmol/L (3.5-5.1) Chloride Level 104mmol/L (98-107) 104mmol/L (98-107) Carbon Dioxide Level 33mmol/L (21-32) 32mmol/L (21-32) Anion Gap 5 (6-14) 5 (6-14) Blood Urea Nitrogen 10mg/dL (7-20) 11mg/dL (7-20) Creatinine 0.7mg/dL (0.6-1.0) 0.6mg/dL (0.6-1.0) Estimated GFR (Cockcroft-Gault) 115.9 138.5 BUN/Creatinine Ratio 14 (6-20) Glucose Level 104mg/dL (70-99) 94mg/dL (70-99) Calcium Level 9.4mg/dL (8.5-10.1) 8.8mg/dL (8.5-10.1) Total Bilirubin 0.2mg/dL (0.2-1.0) Aspartate Amino Transf (AST/SGOT) 14U/L (15-37) Alanine Aminotransferase (ALT/SGPT) 15U/L (14-59) Alkaline Phosphatase 70U/L (46-116) Creatine Kinase 99U/L (26-192) Creatine Kinase MB (Mass) 0.6ng/mL (0.0-3.6) Creatine Kinase MB Relative Index 0.6% (0-4) Total Protein 7.1g/dL (6.4-8.2) Albumin 3.2g/dL (3.4-5.0) Albumin/Globulin Ratio 0.8 (1.0-1.7) Urine Collection Type Unknown Urine Color Yellow Urine Clarity Clear Urine pH 7.0 Urine Specific [place] 1.025 Urine Protein Negativemg/dL (NEG-TRACE) Urine Glucose (UA) Negativemg/dL (NEG) Urine Ketones (Stick) Negativemg/dL (NEG) Urine Blood Large (NEG) Urine Nitrite Negative (NEG) Urine Bilirubin Negative (NEG) Urine Urobilinogen Dipstick 1.0mg/dL (0.2 mg/dL) Urine Leukocyte Esterase Trace (NEG) Urine RBC 6-10/HPF (0-2) Urine WBC Occ/HPF (0-4) Urine Squamous Epithelial Cells Many/LPF Urine Bacteria Moderate/HPF (0-FEW) Urine Mucus Marked/LPF Urine Test Negative (NEG) Lactic Acid Level 1.1mmol/L (0.4-2.0) Test 05/05/16 10:20 Urine Opiates Screen Pos (NEG) Urine Methadone Screen Neg (NEG) Urine Barbiturates Neg (NEG) Urine Phencyclidine Screen Neg (NEG) Urine Amphetamine/Methamphetamine Neg (NEG) Urine Benzodiazepines Screen Neg (NEG) Urine Cocaine Screen Neg (NEG) Urine Cannabinoids Screen Neg (NEG) Urine Ethyl Alcohol Neg (NEG) Laboratory Tests Test 05/04/16 15:30 05/04/16 17:04 05/04/16 18:55 05/05/16 04:02 White Blood Count 6.3x10^3/uL (4.0-11.0) 7.6x10^3/uL (4.0-11.0) Red Blood Count 5.33x10^6/uL (3.50-5.40) 4.94x10^6/uL (3.50-5.40) Hemoglobin 11.7g/dL (12.0-15.5) 10.9g/dL (12.0-15.5) Hematocrit 37.5% (36.0-47.0) 34.5% (36.0-47.0) Mean Corpuscular Volume 70fL (79-100) 70fL (79-100) Mean Corpuscular Hemoglobin 22pg (25-35) 22pg (25-35) Mean Corpuscular Hemoglobin Concent 31g/dL (31-37) 32g/dL (31-37) Red Cell Distribution Width 15.6% (11.5-14.5) 15.8% (11.5-14.5) Platelet Count 268x10^3/uL (140-400) 259x10^3/uL (140-400) Neutrophils (%) (Auto) 57% (31-73) 48% (31-73) Lymphocytes (%) (Auto) 28% (24-48) 35% (24-48) Monocytes (%) (Auto) 10% (0-9) 10% (0-9) Eosinophils (%) (Auto) 5% (0-3) 6% (0-3) Basophils (%) (Auto) 0% (0-3) 1% (0-3) Neutrophils # (Auto) 3.6x10^3uL (1.8-7.7) 3.6x10^3uL (1.8-7.7) Lymphocytes # (Auto) 1.8x10^3/uL (1.0-4.8) 2.6x10^3/uL (1.0-4.8) Monocytes # (Auto) 0.6x10^3/uL (0.0-1.1) 0.8x10^3/uL (0.0-1.1) Eosinophils # (Auto) 0.3x10^3/uL (0.0-0.7) 0.5x10^3/uL (0.0-0.7) Basophils # (Auto) 0.0x10^3/uL (0.0-0.2) 0.0x10^3/uL (0.0-0.2) Platelet Estimate Adequate (ADEQUATE) Hypochromasia Slight Microcytosis Mod Sodium Level 142mmol/L (136-145) 141mmol/L (136-145) Potassium Level 3.7mmol/L (3.5-5.1) 3.8mmol/L (3.5-5.1) Chloride Level 104mmol/L (98-107) 104mmol/L (98-107) Carbon Dioxide Level 33mmol/L (21-32) 32mmol/L (21-32) Anion Gap 5 (6-14) 5 (6-14) Blood Urea Nitrogen 10mg/dL (7-20) 11mg/dL (7-20) Creatinine 0.7mg/dL (0.6-1.0) 0.6mg/dL (0.6-1.0) Estimated GFR (Cockcroft-Gault) 115.9 138.5 BUN/Creatinine Ratio 14 (6-20) Glucose Level 104mg/dL (70-99) 94mg/dL (70-99) Calcium Level 9.4mg/dL (8.5-10.1) 8.8mg/dL (8.5-10.1) Total Bilirubin 0.2mg/dL (0.2-1.0) Aspartate Amino Transf (AST/SGOT) 14U/L (15-37) Alanine Aminotransferase (ALT/SGPT) 15U/L (14-59) Alkaline Phosphatase 70U/L (46-116) Creatine Kinase 99U/L (26-192) Creatine Kinase MB (Mass) 0.6ng/mL (0.0-3.6) Creatine Kinase MB Relative Index 0.6% (0-4) Total Protein 7.1g/dL (6.4-8.2) Albumin 3.2g/dL (3.4-5.0) Albumin/Globulin Ratio 0.8 (1.0-1.7) Urine Collection Type Unknown Urine Color Yellow Urine Clarity Clear Urine pH 7.0 Urine Specific [place] 1.025 Urine Protein Negativemg/dL (NEG-TRACE) Urine Glucose (UA) Negativemg/dL (NEG) Urine Ketones (Stick) Negativemg/dL (NEG) Urine Blood Large (NEG) Urine Nitrite Negative (NEG) Urine Bilirubin Negative (NEG) Urine Urobilinogen Dipstick 1.0mg/dL (0.2 mg/dL) Urine Leukocyte Esterase Trace (NEG) Urine RBC 6-10/HPF (0-2) Urine WBC Occ/HPF (0-4) Urine Squamous Epithelial Cells Many/LPF Urine Bacteria Moderate/HPF (0-FEW) Urine Mucus Marked/LPF Urine Test Negative (NEG) Lactic Acid Level 1.1mmol/L (0.4-2.0) Test 05/05/16 10:20 Urine Opiates Screen Pos (NEG) Urine Methadone Screen Neg (NEG) Urine Barbiturates Neg (NEG) Urine Phencyclidine Screen Neg (NEG) Urine Amphetamine/Methamphetamine Neg (NEG) Urine Benzodiazepines Screen Neg (NEG) Urine Cocaine Screen Neg (NEG) Urine Cannabinoids Screen Neg (NEG) Urine Ethyl Alcohol Neg (NEG) Medications Current Medications Ondansetron HCl (Zofran) 4 mg PRN Q8HRS PRN IV NAUSEA/VOMITING; Start 05/04/16 at 18:15; Stop 05/04/16 at 18:40; Status DC Morphine Sulfate 2 mg PRN Q2HR PRN IV PAIN; Start 05/04/16 at 18:15; Stop at 18:14 Ferrous Sulfate (Feosol) 325 mg BIDWMEALS PO Last administered on 05/05/16 09: 18; Start 05/04/16 at 19:00 Acetaminophen/ Hydrocodone Bitart (Lortab 10/325) 1 tab PRN Q4HRS PRN PO PAIN Last administered on 05/04/16 20:34; Start 05/04/16 at 18:30 Simvastatin (Zocor) 40 mg QHS PO Last administered on 05/04/16 20:05; Start 05/04/16 at 21:00 Duloxetine HCl (Cymbalta) 60 mg DAILY PO Last administered on 05/05/16 09:20; Start 05/05/16 at 09:00 Levetiracetam (Keppra) 1,500 mg BID PO Last administered on 05/05/16 09:20; Start 05/04/16 at 21:00 Losartan Potassium (Cozaar) 100 mg DAILY PO Last administered on 05/05/16 09:19 ; Start 05/05/16 at 09:00 Pantoprazole Sodium (Protonix) 40 mg DAILYAC PO Last administered on 05/05/16 09:20; Start 05/05/16 at 07:30 Acetaminophen (Tylenol) 650 mg PRN Q6HRS PRN PO MILD PAIN / TEMP; Start at 18:45 Ondansetron HCl (Zofran) 4 mg PRN Q6HRS PRN IV NAUSEA/VOMITING; Start 05/04/16 at 18:45 Lorazepam (Ativan) 2 mg PRN Q4HRS PRN IV ANXIETY / AGITATION; Start 05/04/16 at 18:45 Enoxaparin Sodium (Lovenox 40mg Syringe) 40 mg Q24H SQ ; Start 05/04/16 at 21:00 ; Status Cancel Hydrochlorothiazide (Microzide) 12.5 mg DAILY PO Last administered on 05/05/16t 09:19; Start 05/05/16 at 09:00 Enoxaparin Sodium (Lovenox 60mg Syringe) 60 mg Q12HR SQ ; Start 05/04/16 at 21:00 Active Scripts Active Lortab 10-325 mg Tablet (Hydrocodone/Acetaminophen) 1 Each Tablet 1-2 Tab PO Q4HRS PRN Naproxen 500 Mg Tablet. 1 Tab PO BID Reported Phenergan (Promethazine Hcl) 25 Mg/1 Ml Vial 25 Mg PO Q6HRS PRN Ferrous Sulfate 325 Mg Tablet 1 Tab PO BID Loratadine 10 Mg Tablet 90 Mg Benicar Hct 20-12.5 Mg Tablet (Olmesartan/Hydrochlorothiazide) 1 Each Tablet 1 Tab PO DAILY Simvastatin 40 Mg Tablet 1 Tab PO QHS Cymbalta (Duloxetine Hcl) 60 Mg Capsule. 1 Cap PO DAILY Omeprazole 40 Mg Capsule. 1 Cap PO DAILY Women's Daily Multivitamin (Multivit With Calcium,Iron,Min) 1 Each Tablet 1 Each PO DAILY Calcium + Vitamin D Tablet (Calcium Carbonate/Vitamin D3) 1 Each Tablet DAILY Levetiracetam 1,000 Mg Tablet 1,500 Mg PO BID Vitals/I & O Vital Sign - Last 24 Hours 05/04/16 05/04/16 05/04/16 05/04/16 15:00 15:33 16:03 16:33 Temp 98.1 98.1 Pulse 91 90 84 84 Resp 20 20 22 19 B/P 136/65 126/66 126/68 120/90 Pulse Ox 97 95 96 95 O2 Delivery Room Air Room Air Room Air Room Air 05/04/16 05/04/16 05/04/16 05/04/16 17:03 18:00 20:34 21:00 Temp 97.9 97.9 Pulse 80 82 87 Resp 16 20 20 B/P 113/57 120/67 114/63 Pulse Ox 98 97 99 O2 Delivery Room Air Room Air Room Air 05/04/16 05/04/16 05/04/16 05/05/16 21:34 21:57 23:00 03:00 Temp 97.9 98.4 97.9 98.4 Pulse 84 80 Resp 20 20 B/P 120/62 103/58 Pulse Ox 99 99 O2 Delivery Room Air Room Air Room Air Room Air 05/05/16 05/05/16 05/05/16 05/05/16 07:00 08:00 09:19 11:00 Temp 98.2 97.7 98.2 97.7 Pulse 81 81 78 Resp 14 20 B/P 117/84 117/84 147/74 Pulse Ox 99 98 O2 Delivery Room Air Room Air Room Air Intake and Output 05/04/16 05/04/16 05/05/16 15:00 23:00 07:00 Intake Total 600 ml 720 ml Balance 600 ml 720 ml WESLEY ANN III DO May 05, 2016 12:48
[2016-05-05 15:00] VITALS: BP 107/65
--- NOTE | 2016-05-05 15:25 | PDOC2 ---
NEUROLOGY CONSULT Date of Admission Date of Admission DATE: 05/05/16 TIME: 15:12 Reason for Consult Reason for Consult: IMPRESSION: Seizure. HTN HLD KELY Obesity Opiate positive in system. RECOMMENDATIONS/PLAN: EEG Continue Keppra at her home regimen, 1500 mg bid. Treat medical diseases. LTM VEEG as outpatient. 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 Shes stated that she has seizures every month as staring spells and convulsion. She said she had seizure this time to come to the ER of [facility]. PAST MEDICAL HISTORY: Please see above. PAST SURGERY HISTORY: Carpal tunnel surgery. Right ovary removal. ALLERGY: Reviewed. MEDICATIONS: Refer to [facility] FAMILY HISTORY: Non contributory. SOCIAL HISTORY: Lives at home. Denies current smoking, drinking, and illicit drug use/abuse. She drinks alcohol occasionally. REVIEW OF SYSTEMS: Constitutional: No malnutrition, weight loss, cachexia. Head: No traumatic brain or head injury. Skin: No edema, or rash. Ear: No infection, tinnitus. Eyes: No vision loss or color blindness. Nose: No bleeding or purulent discharges. Hearing: No hearing decrease. Neck: No injury. Breast: No history of cancer, masses,or discharges. Cardiac: HTN, HLD. Pulmonary: No COPD. GI: No GI ulcer, GI bleeding. Urinary/genital: UTI. Endocrinologic: Obesity. Skeletomuscular: No muscular atrophy, deformity.. Neurological: see HP. Psychiatric: Denies drug use/abuse. Otherwise, not [id number] review of systems. PHYSICAL EXAMINATION: General appearance is in no acute distress. HEENT: Normocephalic and nontraumatic. Eyes, nose, ears, and throat are unremarkable. Neck is supple. No lymphadenopathy. No crepitus. Cardiovascular: S1, S2, regular rate and rhythm. Pulmonary: Clear to auscultation bilaterally. Abdomen: Bowel sounds are positive. Abdomen is soft, nontender, and nondistended. Extremities: No rash, lesions, or edema. No restriction of range of motion NEUROLOGICAL EXAMINATION: Alert Oriented to time, place and person. PERRL. EOMI. CN: no focal findings. Muscle tone: within normal. Muscle strength: 5 DTR: 2 Plantar reflex: Flexor response bilaterally Gait: not examined in bed. Sensory exam: no abnormal findings. No cerebellar signs elicited. F-T-N test fine. Current Medications Current Medications Current Medications Ondansetron HCl (Zofran) 4 mg PRN Q8HRS PRN IV NAUSEA/VOMITING; Start 05/04/16 at 18:15; Stop 05/04/16 at 18:40; Status DC Morphine Sulfate 2 mg PRN Q2HR PRN IV PAIN; Start 05/04/16 at 18:15; Stop at 18:14 Ferrous Sulfate (Feosol) 325 mg BIDWMEALS PO Last administered on 05/05/16 09: 18; Start 05/04/16 at 19:00 Acetaminophen/ Hydrocodone Bitart (Lortab 10/325) 1 tab PRN Q4HRS PRN PO PAIN Last administered on 05/04/16 20:34; Start 05/04/16 at 18:30 Simvastatin (Zocor) 40 mg QHS PO Last administered on 05/04/16 20:05; Start 05/04/16 at 21:00 Duloxetine HCl (Cymbalta) 60 mg DAILY PO Last administered on 05/05/16 09:20; Start 05/05/16 at 09:00 Levetiracetam (Keppra) 1,500 mg BID PO Last administered on 05/05/16 09:20; Start 05/04/16 at 21:00 Losartan Potassium (Cozaar) 100 mg DAILY PO Last administered on 05/05/16 09:19 ; Start 05/05/16 at 09:00 Pantoprazole Sodium (Protonix) 40 mg DAILYAC PO Last administered on 05/05/16 09:20; Start 05/05/16 at 07:30 Acetaminophen (Tylenol) 650 mg PRN Q6HRS PRN PO MILD PAIN / TEMP; Start at 18:45 Ondansetron HCl (Zofran) 4 mg PRN Q6HRS PRN IV NAUSEA/VOMITING; Start 05/04/16 at 18:45 Lorazepam (Ativan) 2 mg PRN Q4HRS PRN IV ANXIETY / AGITATION; Start 05/04/16 at 18:45 Enoxaparin Sodium (Lovenox 40mg Syringe) 40 mg Q24H SQ ; Start 05/04/16 at 21:00 ; Status Cancel Hydrochlorothiazide (Microzide) 12.5 mg DAILY PO Last administered on 05/05/16t 09:19; Start 05/05/16 at 09:00 Enoxaparin Sodium (Lovenox 60mg Syringe) 60 mg Q12HR SQ ; Start 05/04/16 at 21:00 Active Scripts Active Lortab 10-325 mg Tablet (Hydrocodone/Acetaminophen) 1 Each Tablet 1-2 Tab PO Q4HRS PRN Naproxen 500 Mg Tablet. 1 Tab PO BID Reported Phenergan (Promethazine Hcl) 25 Mg/1 Ml Vial 25 Mg PO Q6HRS PRN Ferrous Sulfate 325 Mg Tablet 1 Tab PO BID Loratadine 10 Mg Tablet 90 Mg Benicar Hct 20-12.5 Mg Tablet (Olmesartan/Hydrochlorothiazide) 1 Each Tablet 1 Tab PO DAILY Simvastatin 40 Mg Tablet 1 Tab PO QHS Cymbalta (Duloxetine Hcl) 60 Mg Capsule. 1 Cap PO DAILY Omeprazole 40 Mg Capsule. 1 Cap PO DAILY Women's Daily Multivitamin (Multivit With Calcium,Iron,Min) 1 Each Tablet 1 Each PO DAILY Calcium + Vitamin D Tablet (Calcium Carbonate/Vitamin D3) 1 Each Tablet DAILY Levetiracetam 1,000 Mg Tablet 1,500 Mg PO BID Allergies Allergies: Coded Allergies: cefditoren (Verified Allergy, Severe, Swelling, 04/08/16) Sulfa (Sulfonamide Antibiotics) (Verified Allergy, Intermediate, Swelling , 04/08/16) ciprofloxacin (Verified Allergy, Intermediate, Swelling, 04/08/16) sulfamethoxazole (Verified Allergy, Intermediate, Swelling, 04/08/16) trimethoprim (Verified Allergy, Intermediate, Swelling, 04/08/16) Vitals VITALS Vital Signs Date Time Temp Pulse Resp B/P Pulse Ox O2 Delivery O2 Flow Rate FiO2 05/05/16 11:00 97.7 78 20 147/74 98 Room Air 97.7 Labs Labs Laboratory Tests Test 05/04/16 15:30 05/04/16 17:04 05/04/16 18:55 05/05/16 04:02 White Blood Count 6.3x10^3/uL (4.0-11.0) 7.6x10^3/uL (4.0-11.0) Red Blood Count 5.33x10^6/uL (3.50-5.40) 4.94x10^6/uL (3.50-5.40) Hemoglobin 11.7g/dL (12.0-15.5) 10.9g/dL (12.0-15.5) Hematocrit 37.5% (36.0-47.0) 34.5% (36.0-47.0) Mean Corpuscular Volume 70fL (79-100) 70fL (79-100) Mean Corpuscular Hemoglobin 22pg (25-35) 22pg (25-35) Mean Corpuscular Hemoglobin Concent 31g/dL (31-37) 32g/dL (31-37) Red Cell Distribution Width 15.6% (11.5-14.5) 15.8% (11.5-14.5) Platelet Count 268x10^3/uL (140-400) 259x10^3/uL (140-400) Neutrophils (%) (Auto) 57% (31-73) 48% (31-73) Lymphocytes (%) (Auto) 28% (24-48) 35% (24-48) Monocytes (%) (Auto) 10% (0-9) 10% (0-9) Eosinophils (%) (Auto) 5% (0-3) 6% (0-3) Basophils (%) (Auto) 0% (0-3) 1% (0-3) Neutrophils # (Auto) 3.6x10^3uL (1.8-7.7) 3.6x10^3uL (1.8-7.7) Lymphocytes # (Auto) 1.8x10^3/uL (1.0-4.8) 2.6x10^3/uL (1.0-4.8) Monocytes # (Auto) 0.6x10^3/uL (0.0-1.1) 0.8x10^3/uL (0.0-1.1) Eosinophils # (Auto) 0.3x10^3/uL (0.0-0.7) 0.5x10^3/uL (0.0-0.7) Basophils # (Auto) 0.0x10^3/uL (0.0-0.2) 0.0x10^3/uL (0.0-0.2) Platelet Estimate Adequate (ADEQUATE) Hypochromasia Slight Microcytosis Mod Sodium Level 142mmol/L (136-145) 141mmol/L (136-145) Potassium Level 3.7mmol/L (3.5-5.1) 3.8mmol/L (3.5-5.1) Chloride Level 104mmol/L (98-107) 104mmol/L (98-107) Carbon Dioxide Level 33mmol/L (21-32) 32mmol/L (21-32) Anion Gap 5 (6-14) 5 (6-14) Blood Urea Nitrogen 10mg/dL (7-20) 11mg/dL (7-20) Creatinine 0.7mg/dL (0.6-1.0) 0.6mg/dL (0.6-1.0) Estimated GFR (Cockcroft-Gault) 115.9 138.5 BUN/Creatinine Ratio 14 (6-20) Glucose Level 104mg/dL (70-99) 94mg/dL (70-99) Calcium Level 9.4mg/dL (8.5-10.1) 8.8mg/dL (8.5-10.1) Total Bilirubin 0.2mg/dL (0.2-1.0) Aspartate Amino Transf (AST/SGOT) 14U/L (15-37) Alanine Aminotransferase (ALT/SGPT) 15U/L (14-59) Alkaline Phosphatase 70U/L (46-116) Creatine Kinase 99U/L (26-192) Creatine Kinase MB (Mass) 0.6ng/mL (0.0-3.6) Creatine Kinase MB Relative Index 0.6% (0-4) Total Protein 7.1g/dL (6.4-8.2) Albumin 3.2g/dL (3.4-5.0) Albumin/Globulin Ratio 0.8 (1.0-1.7) Urine Collection Type Unknown Urine Color Yellow Urine Clarity Clear Urine pH 7.0 Urine Specific [place] 1.025 Urine Protein Negativemg/dL (NEG-TRACE) Urine Glucose (UA) Negativemg/dL (NEG) Urine Ketones (Stick) Negativemg/dL (NEG) Urine Blood Large (NEG) Urine Nitrite Negative (NEG) Urine Bilirubin Negative (NEG) Urine Urobilinogen Dipstick 1.0mg/dL (0.2 mg/dL) Urine Leukocyte Esterase Trace (NEG) Urine RBC 6-10/HPF (0-2) Urine WBC Occ/HPF (0-4) Urine Squamous Epithelial Cells Many/LPF Urine Bacteria Moderate/HPF (0-FEW) Urine Mucus Marked/LPF Urine Test Negative (NEG) Lactic Acid Level 1.1mmol/L (0.4-2.0) Test 05/05/16 10:20 Urine Opiates Screen Pos (NEG) Urine Methadone Screen Neg (NEG) Urine Barbiturates Neg (NEG) Urine Phencyclidine Screen Neg (NEG) Urine Amphetamine/Methamphetamine Neg (NEG) Urine Benzodiazepines Screen Neg (NEG) Urine Cocaine Screen Neg (NEG) Urine Cannabinoids Screen Neg (NEG) Urine Ethyl Alcohol Neg (NEG) Laboratory Tests Test 05/04/16 15:30 05/04/16 17:04 05/04/16 18:55 05/05/16 04:02 White Blood Count 6.3x10^3/uL (4.0-11.0) 7.6x10^3/uL (4.0-11.0) Red Blood Count 5.33x10^6/uL (3.50-5.40) 4.94x10^6/uL (3.50-5.40) Hemoglobin 11.7g/dL (12.0-15.5) 10.9g/dL (12.0-15.5) Hematocrit 37.5% (36.0-47.0) 34.5% (36.0-47.0) Mean Corpuscular Volume 70fL (79-100) 70fL (79-100) Mean Corpuscular Hemoglobin 22pg (25-35) 22pg (25-35) Mean Corpuscular Hemoglobin Concent 31g/dL (31-37) 32g/dL (31-37) Red Cell Distribution Width 15.6% (11.5-14.5) 15.8% (11.5-14.5) Platelet Count 268x10^3/uL (140-400) 259x10^3/uL (140-400) Neutrophils (%) (Auto) 57% (31-73) 48% (31-73) Lymphocytes (%) (Auto) 28% (24-48) 35% (24-48) Monocytes (%) (Auto) 10% (0-9) 10% (0-9) Eosinophils (%) (Auto) 5% (0-3) 6% (0-3) Basophils (%) (Auto) 0% (0-3) 1% (0-3) Neutrophils # (Auto) 3.6x10^3uL (1.8-7.7) 3.6x10^3uL (1.8-7.7) Lymphocytes # (Auto) 1.8x10^3/uL (1.0-4.8) 2.6x10^3/uL (1.0-4.8) Monocytes # (Auto) 0.6x10^3/uL (0.0-1.1) 0.8x10^3/uL (0.0-1.1) Eosinophils # (Auto) 0.3x10^3/uL (0.0-0.7) 0.5x10^3/uL (0.0-0.7) Basophils # (Auto) 0.0x10^3/uL (0.0-0.2) 0.0x10^3/uL (0.0-0.2) Platelet Estimate Adequate (ADEQUATE) Hypochromasia Slight Microcytosis Mod Sodium Level 142mmol/L (136-145) 141mmol/L (136-145) Potassium Level 3.7mmol/L (3.5-5.1) 3.8mmol/L (3.5-5.1) Chloride Level 104mmol/L (98-107) 104mmol/L (98-107) Carbon Dioxide Level 33mmol/L (21-32) 32mmol/L (21-32) Anion Gap 5 (6-14) 5 (6-14) Blood Urea Nitrogen 10mg/dL (7-20) 11mg/dL (7-20) Creatinine 0.7mg/dL (0.6-1.0) 0.6mg/dL (0.6-1.0) Estimated GFR (Cockcroft-Gault) 115.9 138.5 BUN/Creatinine Ratio 14 (6-20) Glucose Level 104mg/dL (70-99) 94mg/dL (70-99) Calcium Level 9.4mg/dL (8.5-10.1) 8.8mg/dL (8.5-10.1) Total Bilirubin 0.2mg/dL (0.2-1.0) Aspartate Amino Transf (AST/SGOT) 14U/L (15-37) Alanine Aminotransferase (ALT/SGPT) 15U/L (14-59) Alkaline Phosphatase 70U/L (46-116) Creatine Kinase 99U/L (26-192) Creatine Kinase MB (Mass) 0.6ng/mL (0.0-3.6) Creatine Kinase MB Relative Index 0.6% (0-4) Total Protein 7.1g/dL (6.4-8.2) Albumin 3.2g/dL (3.4-5.0) Albumin/Globulin Ratio 0.8 (1.0-1.7) Urine Collection Type Unknown Urine Color Yellow Urine Clarity Clear Urine pH 7.0 Urine Specific [place] 1.025 Urine Protein Negativemg/dL (NEG-TRACE) Urine Glucose (UA) Negativemg/dL (NEG) Urine Ketones (Stick) Negativemg/dL (NEG) Urine Blood Large (NEG) Urine Nitrite Negative (NEG) Urine Bilirubin Negative (NEG) Urine Urobilinogen Dipstick 1.0mg/dL (0.2 mg/dL) Urine Leukocyte Esterase Trace (NEG) Urine RBC 6-10/HPF (0-2) Urine WBC Occ/HPF (0-4) Urine Squamous Epithelial Cells Many/LPF Urine Bacteria Moderate/HPF (0-FEW) Urine Mucus Marked/LPF Urine Test Negative (NEG) Lactic Acid Level 1.1mmol/L (0.4-2.0) Test 05/05/16 10:20 Urine Opiates Screen Pos (NEG) Urine Methadone Screen Neg (NEG) Urine Barbiturates Neg (NEG) Urine Phencyclidine Screen Neg (NEG) Urine Amphetamine/Methamphetamine Neg (NEG) Urine Benzodiazepines Screen Neg (NEG) Urine Cocaine Screen Neg (NEG) Urine Cannabinoids Screen Neg (NEG) Urine Ethyl Alcohol Neg (NEG) ILYA ENRIQUEZ MD May 05, 2016 15:25
[2016-05-05 19:00] VITALS: BP 123/75
[2016-05-05] MEDS: SIMVASTATIN 40 MG TABLET. PO SCH (21:11)
[2016-05-05] MEDS: HYDROCODONE/APAP 10/325 TABLET. PO PRN (22:37)
[2016-05-05 23:01] VITALS: BP 120/63
--- NOTE | 2016-05-06 00:02 | ACF ---
Admission Forms Criteria Admission Criteria Met?: ELIZABETH De May 06, 2016 00:01 ERASMO HYMAN MD May 06, 2016 18:10
[2016-05-06 03:00] VITALS: BP 99/50
[2016-05-06 07:00] VITALS: BP 107/69
[2016-05-06 07:58] LABS: BASO % 0 % (0-3); EOS % 5 % (0-3); HEMATOCRIT 35.7 % (36.0-47.0); LYMPH # 2.2 x10^3/uL (1.0-4.8); LYMPH % 29 % (24-48); MEAN CORPUSCULAR HEMOGLOBIN 22 pg (25-35); MEAN CORPUSCULAR HGB CONC 31 g/dL (31-37); MEAN CORPUSCULAR VOLUME 71 fL (79-100); MONO % 9 % (0-9); NEUT % 57 % (31-73); PLATELET COUNT 250 x10^3/uL (140-400); RED BLOOD COUNT 5.02 x10^6/uL (3.50-5.40); RED CELL DISTRIBUTION WIDTH 15.9 % (11.5-14.5); WHITE BLOOD COUNT 7.6 x10^3/uL (4.0-11.0)
[2016-05-06] MEDS: LOSARTAN POTASSIUM 50 MG TABLET. PO SCH (08:40)
[2016-05-06] MEDS: DULOXETINE HCL 30 MG CAPSULE.DR. PO SCH (08:40)
[2016-05-06] MEDS: FERROUS SULFATE 325 MG TABLET PO SCH (08:40)
[2016-05-06] MEDS: HYDROCHLOROTHIAZIDE 12.5 MG CAPSULE. PO SCH (08:40)
[2016-05-06] MEDS: PANTOPRAZOLE 40 MG TABLET. PO SCH (08:41)
[2016-05-06] MEDS: LEVETIRACETAM 500 MG TABLET PO SCH (08:41)
[2016-05-06] MEDS: ENOXAPARIN ** NOTE DOSE ** SYRINGE SQ SCH (08:48)
[2016-05-06 08:49] LABS: CALCIUM 8.7 mg/dL (8.5-10.1); CREATININE 0.7 mg/dL (0.6-1.0); GFR 115.9; POTASSIUM 3.6 mmol/L (3.5-5.1)
--- NOTE | 2016-05-06 09:44 | PDOC ---
PROGRESS NOTES Chief Complaint Chief Complaint Seizure 1. seizure 2. HTN 3. hld 4. OA 5. depression 6. morbid obesity bmi 59 7. loki 8. anemia 9. GERD History of Present Illness History of Present Illness Patient resting comfortably in bed VSZoey MCKEON RN Mom present Discussed plan with patient and mom Discussed recommendation from neuro to stay on 1500mg Keppra bid Awaiting EEG results Patient admitted to feeling an aura this morning Vitals Vitals Vital Signs Date Time Temp Pulse Resp B/P Pulse Ox O2 Delivery O2 Flow Rate FiO2 05/06/16 08:40 74 107/69 05/06/16 08:00 Room Air 05/06/16 07:00 98.0 18 98 98.0 Physical Exam General: Alert, Oriented X3, Cooperative, No acute distress Heart: Regular rate, No murmurs Lungs: Clear, Other (no wheezing or crackles) Abdomen: Normal bowel sounds, Soft Extremities: No cyanosis, No edema Skin: No rashes, No breakdown Labs LABS Laboratory Tests Test 05/05/16 10:20 05/06/16 07:05 05/06/16 07:15 Urine Opiates Screen Pos (NEG) Urine Methadone Screen Neg (NEG) Urine Barbiturates Neg (NEG) Urine Phencyclidine Screen Neg (NEG) Urine Amphetamine/Methamphetamine Neg (NEG) Urine Benzodiazepines Screen Neg (NEG) Urine Cocaine Screen Neg (NEG) Urine Cannabinoids Screen Neg (NEG) Urine Ethyl Alcohol Neg (NEG) White Blood Count 7.6x10^3/uL (4.0-11.0) Red Blood Count 5.02x10^6/uL (3.50-5.40) Hemoglobin 11.0g/dL (12.0-15.5) Hematocrit 35.7% (36.0-47.0) Mean Corpuscular Volume 71fL (79-100) Mean Corpuscular Hemoglobin 22pg (25-35) Mean Corpuscular Hemoglobin Concent 31g/dL (31-37) Red Cell Distribution Width 15.9% (11.5-14.5) Platelet Count 250x10^3/uL (140-400) Neutrophils (%) (Auto) 57% (31-73) Lymphocytes (%) (Auto) 29% (24-48) Monocytes (%) (Auto) 9% (0-9) Eosinophils (%) (Auto) 5% (0-3) Basophils (%) (Auto) 0% (0-3) Neutrophils # (Auto) 4.3x10^3uL (1.8-7.7) Lymphocytes # (Auto) 2.2x10^3/uL (1.0-4.8) Monocytes # (Auto) 0.7x10^3/uL (0.0-1.1) Eosinophils # (Auto) 0.3x10^3/uL (0.0-0.7) Basophils # (Auto) 0.0x10^3/uL (0.0-0.2) Sodium Level 139mmol/L (136-145) Potassium Level 3.6mmol/L (3.5-5.1) Chloride Level 102mmol/L (98-107) Carbon Dioxide Level 30mmol/L (21-32) Anion Gap 7 (6-14) Blood Urea Nitrogen 9mg/dL (7-20) Creatinine 0.7mg/dL (0.6-1.0) Estimated GFR (Cockcroft-Gault) 115.9 Glucose Level 88mg/dL (70-99) Calcium Level 8.7mg/dL (8.5-10.1) Review of Systems Review of Systems Complaining of aura this morning Complaining of mild weakness Assessment and Plan Assessmemt and Plan Problems Medical Problems: (1) Seizure Status: Acute 1. seizure 2. HTN 3. hld 4. OA 5. depression 6. morbid obesity bmi 59 7. loki 8. anemia 9. GERD plan: 1. neuro consulted - EEG completed today, awaiting results 2. continue keppra per neuro 3. cont home dose 4. FALL Precaution ptot dvt ppx DRUG Screen Continue heel reducer Repeat labs in AM D/C when OK with neuro Subspecialty input appreciated Problems: Comment Review of Relevant I have reviewed the following items nasir (where applicable) has been applied. Labs Laboratory Tests Test 05/04/16 15:30 05/04/16 17:04 05/04/16 18:55 05/05/16 04:02 White Blood Count 6.3x10^3/uL (4.0-11.0) 7.6x10^3/uL (4.0-11.0) Red Blood Count 5.33x10^6/uL (3.50-5.40) 4.94x10^6/uL (3.50-5.40) Hemoglobin 11.7g/dL (12.0-15.5) 10.9g/dL (12.0-15.5) Hematocrit 37.5% (36.0-47.0) 34.5% (36.0-47.0) Mean Corpuscular Volume 70fL (79-100) 70fL (79-100) Mean Corpuscular Hemoglobin 22pg (25-35) 22pg (25-35) Mean Corpuscular Hemoglobin Concent 31g/dL (31-37) 32g/dL (31-37) Red Cell Distribution Width 15.6% (11.5-14.5) 15.8% (11.5-14.5) Platelet Count 268x10^3/uL (140-400) 259x10^3/uL (140-400) Neutrophils (%) (Auto) 57% (31-73) 48% (31-73) Lymphocytes (%) (Auto) 28% (24-48) 35% (24-48) Monocytes (%) (Auto) 10% (0-9) 10% (0-9) Eosinophils (%) (Auto) 5% (0-3) 6% (0-3) Basophils (%) (Auto) 0% (0-3) 1% (0-3) Neutrophils # (Auto) 3.6x10^3uL (1.8-7.7) 3.6x10^3uL (1.8-7.7) Lymphocytes # (Auto) 1.8x10^3/uL (1.0-4.8) 2.6x10^3/uL (1.0-4.8) Monocytes # (Auto) 0.6x10^3/uL (0.0-1.1) 0.8x10^3/uL (0.0-1.1) Eosinophils # (Auto) 0.3x10^3/uL (0.0-0.7) 0.5x10^3/uL (0.0-0.7) Basophils # (Auto) 0.0x10^3/uL (0.0-0.2) 0.0x10^3/uL (0.0-0.2) Platelet Estimate Adequate (ADEQUATE) Hypochromasia Slight Microcytosis Mod Sodium Level 142mmol/L (136-145) 141mmol/L (136-145) Potassium Level 3.7mmol/L (3.5-5.1) 3.8mmol/L (3.5-5.1) Chloride Level 104mmol/L (98-107) 104mmol/L (98-107) Carbon Dioxide Level 33mmol/L (21-32) 32mmol/L (21-32) Anion Gap 5 (6-14) 5 (6-14) Blood Urea Nitrogen 10mg/dL (7-20) 11mg/dL (7-20) Creatinine 0.7mg/dL (0.6-1.0) 0.6mg/dL (0.6-1.0) Estimated GFR (Cockcroft-Gault) 115.9 138.5 BUN/Creatinine Ratio 14 (6-20) Glucose Level 104mg/dL (70-99) 94mg/dL (70-99) Calcium Level 9.4mg/dL (8.5-10.1) 8.8mg/dL (8.5-10.1) Total Bilirubin 0.2mg/dL (0.2-1.0) Aspartate Amino Transf (AST/SGOT) 14U/L (15-37) Alanine Aminotransferase (ALT/SGPT) 15U/L (14-59) Alkaline Phosphatase 70U/L (46-116) Creatine Kinase 99U/L (26-192) Creatine Kinase MB (Mass) 0.6ng/mL (0.0-3.6) Creatine Kinase MB Relative Index 0.6% (0-4) Total Protein 7.1g/dL (6.4-8.2) Albumin 3.2g/dL (3.4-5.0) Albumin/Globulin Ratio 0.8 (1.0-1.7) Urine Collection Type Unknown Urine Color Yellow Urine Clarity Clear Urine pH 7.0 Urine Specific [place] 1.025 Urine Protein Negativemg/dL (NEG-TRACE) Urine Glucose (UA) Negativemg/dL (NEG) Urine Ketones (Stick) Negativemg/dL (NEG) Urine Blood Large (NEG) Urine Nitrite Negative (NEG) Urine Bilirubin Negative (NEG) Urine Urobilinogen Dipstick 1.0mg/dL (0.2 mg/dL) Urine Leukocyte Esterase Trace (NEG) Urine RBC 6-10/HPF (0-2) Urine WBC Occ/HPF (0-4) Urine Squamous Epithelial Cells Many/LPF Urine Bacteria Moderate/HPF (0-FEW) Urine Mucus Marked/LPF Urine Test Negative (NEG) Lactic Acid Level 1.1mmol/L (0.4-2.0) Test 05/05/16 10:20 05/06/16 07:05 05/06/16 07:15 Urine Opiates Screen Pos (NEG) Urine Methadone Screen Neg (NEG) Urine Barbiturates Neg (NEG) Urine Phencyclidine Screen Neg (NEG) Urine Amphetamine/Methamphetamine Neg (NEG) Urine Benzodiazepines Screen Neg (NEG) Urine Cocaine Screen Neg (NEG) Urine Cannabinoids Screen Neg (NEG) Urine Ethyl Alcohol Neg (NEG) White Blood Count 7.6x10^3/uL (4.0-11.0) Red Blood Count 5.02x10^6/uL (3.50-5.40) Hemoglobin 11.0g/dL (12.0-15.5) Hematocrit 35.7% (36.0-47.0) Mean Corpuscular Volume 71fL (79-100) Mean Corpuscular Hemoglobin 22pg (25-35) Mean Corpuscular Hemoglobin Concent 31g/dL (31-37) Red Cell Distribution Width 15.9% (11.5-14.5) Platelet Count 250x10^3/uL (140-400) Neutrophils (%) (Auto) 57% (31-73) Lymphocytes (%) (Auto) 29% (24-48) Monocytes (%) (Auto) 9% (0-9) Eosinophils (%) (Auto) 5% (0-3) Basophils (%) (Auto) 0% (0-3) Neutrophils # (Auto) 4.3x10^3uL (1.8-7.7) Lymphocytes # (Auto) 2.2x10^3/uL (1.0-4.8) Monocytes # (Auto) 0.7x10^3/uL (0.0-1.1) Eosinophils # (Auto) 0.3x10^3/uL (0.0-0.7) Basophils # (Auto) 0.0x10^3/uL (0.0-0.2) Sodium Level 139mmol/L (136-145) Potassium Level 3.6mmol/L (3.5-5.1) Chloride Level 102mmol/L (98-107) Carbon Dioxide Level 30mmol/L (21-32) Anion Gap 7 (6-14) Blood Urea Nitrogen 9mg/dL (7-20) Creatinine 0.7mg/dL (0.6-1.0) Estimated GFR (Cockcroft-Gault) 115.9 Glucose Level 88mg/dL (70-99) Calcium Level 8.7mg/dL (8.5-10.1) Laboratory Tests Test 05/05/16 10:20 05/06/16 07:05 05/06/16 07:15 Urine Opiates Screen Pos (NEG) Urine Methadone Screen Neg (NEG) Urine Barbiturates Neg (NEG) Urine Phencyclidine Screen Neg (NEG) Urine Amphetamine/Methamphetamine Neg (NEG) Urine Benzodiazepines Screen Neg (NEG) Urine Cocaine Screen Neg (NEG) Urine Cannabinoids Screen Neg (NEG) Urine Ethyl Alcohol Neg (NEG) White Blood Count 7.6x10^3/uL (4.0-11.0) Red Blood Count 5.02x10^6/uL (3.50-5.40) Hemoglobin 11.0g/dL (12.0-15.5) Hematocrit 35.7% (36.0-47.0) Mean Corpuscular Volume 71fL (79-100) Mean Corpuscular Hemoglobin 22pg (25-35) Mean Corpuscular Hemoglobin Concent 31g/dL (31-37) Red Cell Distribution Width 15.9% (11.5-14.5) Platelet Count 250x10^3/uL (140-400) Neutrophils (%) (Auto) 57% (31-73) Lymphocytes (%) (Auto) 29% (24-48) Monocytes (%) (Auto) 9% (0-9) Eosinophils (%) (Auto) 5% (0-3) Basophils (%) (Auto) 0% (0-3) Neutrophils # (Auto) 4.3x10^3uL (1.8-7.7) Lymphocytes # (Auto) 2.2x10^3/uL (1.0-4.8) Monocytes # (Auto) 0.7x10^3/uL (0.0-1.1) Eosinophils # (Auto) 0.3x10^3/uL (0.0-0.7) Basophils # (Auto) 0.0x10^3/uL (0.0-0.2) Sodium Level 139mmol/L (136-145) Potassium Level 3.6mmol/L (3.5-5.1) Chloride Level 102mmol/L (98-107) Carbon Dioxide Level 30mmol/L (21-32) Anion Gap 7 (6-14) Blood Urea Nitrogen 9mg/dL (7-20) Creatinine 0.7mg/dL (0.6-1.0) Estimated GFR (Cockcroft-Gault) 115.9 Glucose Level 88mg/dL (70-99) Calcium Level 8.7mg/dL (8.5-10.1) Microbiology 05/04/16 Urine Culture - Preliminary, Resulted 05/04/16 Urine Culture Result 1 (CONCEPCION) - Preliminary, Resulted Medications Current Medications Ondansetron HCl (Zofran) 4 mg PRN Q8HRS PRN IV NAUSEA/VOMITING; Start 05/04/16 at 18:15; Stop 05/04/16 at 18:40; Status DC Morphine Sulfate 2 mg PRN Q2HR PRN IV PAIN; Start 05/04/16 at 18:15; Stop at 18:14; Status DC Ferrous Sulfate (Feosol) 325 mg BIDWMEALS PO Last administered on 05/06/16 08: 40; Start 05/04/16 at 19:00 Acetaminophen/ Hydrocodone Bitart (Lortab 10/325) 1 tab PRN Q4HRS PRN PO PAIN Last administered on 05/05/16 22:37; Start 05/04/16 at 18:30 Simvastatin (Zocor) 40 mg QHS PO Last administered on 05/05/16 21:11; Start 05/04/16 at 21:00 Duloxetine HCl (Cymbalta) 60 mg DAILY PO Last administered on 05/06/16 08:40; Start 05/05/16 at 09:00 Levetiracetam (Keppra) 1,500 mg BID PO Last administered on 05/06/16 08:41; Start 05/04/16 at 21:00 Losartan Potassium (Cozaar) 100 mg DAILY PO Last administered on 05/06/16 08:40 ; Start 05/05/16 at 09:00 Pantoprazole Sodium (Protonix) 40 mg DAILYAC PO Last administered on 05/06/16 08:41; Start 05/05/16 at 07:30 Acetaminophen (Tylenol) 650 mg PRN Q6HRS PRN PO MILD PAIN / TEMP; Start at 18:45 Ondansetron HCl (Zofran) 4 mg PRN Q6HRS PRN IV NAUSEA/VOMITING; Start 05/04/16 at 18:45 Lorazepam (Ativan) 2 mg PRN Q4HRS PRN IV ANXIETY / AGITATION; Start 05/04/16 at 18:45 Enoxaparin Sodium (Lovenox 40mg Syringe) 40 mg Q24H SQ ; Start 05/04/16 at 21:00 ; Status Cancel Hydrochlorothiazide (Microzide) 12.5 mg DAILY PO Last administered on 05/06/16 08:40; Start 05/05/16 at 09:00 Enoxaparin Sodium (Lovenox 60mg Syringe) 60 mg Q12HR SQ ; Start 05/04/16 at 21:00 Active Scripts Active Lortab 10-325 mg Tablet (Hydrocodone/Acetaminophen) 1 Each Tablet 1-2 Tab PO Q4HRS PRN Naproxen 500 Mg Tablet. 1 Tab PO BID Reported Phenergan (Promethazine Hcl) 25 Mg/1 Ml Vial 25 Mg PO Q6HRS PRN Ferrous Sulfate 325 Mg Tablet 1 Tab PO BID Loratadine 10 Mg Tablet 90 Mg Benicar Hct 20-12.5 Mg Tablet (Olmesartan/Hydrochlorothiazide) 1 Each Tablet 1 Tab PO DAILY Simvastatin 40 Mg Tablet 1 Tab PO QHS Cymbalta (Duloxetine Hcl) 60 Mg Capsule. 1 Cap PO DAILY Omeprazole 40 Mg Capsule. 1 Cap PO DAILY Women's Daily Multivitamin (Multivit With Calcium,Iron,Min) 1 Each Tablet 1 Each PO DAILY Calcium + Vitamin D Tablet (Calcium Carbonate/Vitamin D3) 1 Each Tablet DAILY Levetiracetam 1,000 Mg Tablet 1,500 Mg PO BID Vitals/I & O Vital Sign - Last 24 Hours 05/05/16 05/05/16 05/05/16 05/05/16 11:00 15:00 19:00 20:00 Temp 97.7 97.7 99.0 97.7 97.7 99.0 Pulse 78 87 84 Resp 20 18 20 B/P 147/74 107/65 123/75 Pulse Ox 98 100 95 O2 Delivery Room Air Room Air Room Air Room Air 05/05/16 05/05/16 05/06/16 05/06/16 22:37 23:01 03:00 07:00 Temp 99.1 97.7 98.0 99.1 97.7 98.0 Pulse 85 84 74 Resp 16 20 16 18 B/P 120/63 99/50 107/69 Pulse Ox 97 97 98 O2 Delivery Room Air Room Air Room Air Room Air 05/06/16 05/06/16 08:00 08:40 Pulse 74 B/P 107/69 O2 Delivery Room Air Intake and Output 05/05/16 05/05/16 05/06/16 15:00 23:00 07:00 Intake Total 600 ml 600 ml Balance 600 ml 600 ml WESLEY ANN K III DO May 06, 2016 09:44
[2016-05-06 10:38] VITALS: BP 143/73
--- NOTE | 2016-05-06 15:39 | PDOC ---
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 HTN HLD KELY Obesity, morbid Opiate positive in system. RECOMMENDATIONS/PLAN: Continue Keppra at her home regimen, 1500 mg bid. Treat medical diseases. LTM VEEG as outpatient. FU with PCP. FU with Neurology if LTM VEEG is abnormal. 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 Shes stated that she has seizures every month as staring spells and convulsion. She said she had seizure this time to come to the ER of [facility]. She stated she had some seizure like episodes in am on 05/06, but no seizure reports from her nurse. PAST MEDICAL HISTORY: Please see above. PAST SURGERY HISTORY: Carpal tunnel surgery. Right ovary removal. ALLERGY: Reviewed. MEDICATIONS: Refer to [facility] FAMILY HISTORY: Non contributory. SOCIAL HISTORY: Lives at home. Denies current smoking, drinking, and illicit drug use/abuse. She drinks alcohol occasionally. REVIEW OF SYSTEMS: Constitutional: No malnutrition, weight loss, cachexia. Head: No traumatic brain or head injury. Skin: No edema, or rash. Ear: No infection, tinnitus. Eyes: No vision loss or color blindness. Nose: No bleeding or purulent discharges. Hearing: No hearing decrease. Neck: No injury. Breast: No history of cancer, masses,or discharges. Cardiac: HTN, HLD. Pulmonary: No COPD. GI: No GI ulcer, GI bleeding. Urinary/genital: UTI. Endocrinologic: Obesity. Skeletomuscular: No muscular atrophy, deformity.. Neurological: see HP. Psychiatric: Denies drug use/abuse. Otherwise, not [id number] review of systems. PHYSICAL EXAMINATION: General appearance is in no acute distress. HEENT: Normocephalic and nontraumatic. Eyes, nose, ears, and throat are unremarkable. Neck is supple. No lymphadenopathy. No crepitus. Cardiovascular: S1, S2, regular rate and rhythm. Pulmonary: Clear to auscultation bilaterally. Abdomen: Bowel sounds are positive. Abdomen is soft, nontender, and nondistended. Extremities: No rash, lesions, or edema. No restriction of range of motion NEUROLOGICAL EXAMINATION: Alert Oriented to time, place and person. PERRL. EOMI. CN: no focal findings. Muscle tone: within normal. Muscle strength: 5 DTR: 2 Plantar reflex: Flexor response bilaterally Gait: not examined in bed. Sensory exam: no abnormal findings. No cerebellar signs elicited. F-T-N test fine. Objective Objective Vital Signs Date Time Temp Pulse Resp B/P Pulse Ox O2 Delivery O2 Flow Rate FiO2 05/06/16 10:38 97.9 77 18 143/73 99 Room Air 97.9 Intake and Output 05/06/16 07:00 Intake Total 1200 ml Balance 1200 ml Intake Oral 1200 ml # Voids 6 Vitals Signs Vitals VS - Last 72 Hours, by Label Date Time Temp Pulse Resp B/P Pulse Ox O2 Delivery O2 Flow Rate FiO2 05/06/16 10:38 97.9 77 18 143/73 99 Room Air 97.9 05/06/16 08:40 74 107/69 05/06/16 08:00 Room Air 05/06/16 07:00 98.0 74 18 107/69 98 Room Air 98.0 05/06/16 03:00 97.7 84 16 99/50 97 Room Air 97.7 05/05/16 23:01 99.1 85 20 120/63 97 Room Air 99.1 05/05/16 22:37 16 Room Air 05/05/16 20:00 Room Air 05/05/16 19:00 99.0 84 20 123/75 95 Room Air 99.0 05/05/16 15:00 97.7 87 18 107/65 100 Room Air 97.7 05/05/16 11:00 97.7 78 20 147/74 98 Room Air 97.7 05/05/16 09:19 81 117/84 05/05/16 08:00 Room Air 05/05/16 07:00 98.2 81 14 117/84 99 Room Air 98.2 Laboratory Laboratory Laboratory Tests Test 05/06/16 07:05 05/06/16 07:15 White Blood Count 7.6x10^3/uL (4.0-11.0) Red Blood Count 5.02x10^6/uL (3.50-5.40) Hemoglobin 11.0g/dL (12.0-15.5) Hematocrit 35.7% (36.0-47.0) Mean Corpuscular Volume 71fL (79-100) Mean Corpuscular Hemoglobin 22pg (25-35) Mean Corpuscular Hemoglobin Concent 31g/dL (31-37) Red Cell Distribution Width 15.9% (11.5-14.5) Platelet Count 250x10^3/uL (140-400) Neutrophils (%) (Auto) 57% (31-73) Lymphocytes (%) (Auto) 29% (24-48) Monocytes (%) (Auto) 9% (0-9) Eosinophils (%) (Auto) 5% (0-3) Basophils (%) (Auto) 0% (0-3) Neutrophils # (Auto) 4.3x10^3uL (1.8-7.7) Lymphocytes # (Auto) 2.2x10^3/uL (1.0-4.8) Monocytes # (Auto) 0.7x10^3/uL (0.0-1.1) Eosinophils # (Auto) 0.3x10^3/uL (0.0-0.7) Basophils # (Auto) 0.0x10^3/uL (0.0-0.2) Sodium Level 139mmol/L (136-145) Potassium Level 3.6mmol/L (3.5-5.1) Chloride Level 102mmol/L (98-107) Carbon Dioxide Level 30mmol/L (21-32) Anion Gap 7 (6-14) Blood Urea Nitrogen 9mg/dL (7-20) Creatinine 0.7mg/dL (0.6-1.0) Estimated GFR (Cockcroft-Gault) 115.9 Glucose Level 88mg/dL (70-99) Calcium Level 8.7mg/dL (8.5-10.1) Microbiology 05/04/16 Urine Culture - Final, Complete 05/04/16 Urine Culture Result 1 (CONCEPCION) - Final, Complete Comment Review of Relevant I have reviewed the following items nasir (where applicable) has been applied. ILYA ENRIQUEZ MD May 06, 2016 15:39
--- NOTE | 2016-05-07 00:47 | EEG ---
DATE OF SERVICE: 05/05/2016 EEG NUMBER: [id number] OBJECTIVE: This is a 35-year-old -Citizen Of [place] female patient with history of seizure or seizure like episodes for this admission. EEG was requested to evaluate seizure activity. The patient stated that he has staring spells and complex seizures during daytime and convulsions during night. METHODS: Sixteen electrodes were applied according to the international 10-20 electrode placement system. EKG monitoring, hyperventilation, intermittent photic stimulation, monopolar and bipolar montages are routinely utilized. The record was obtained on a digital system with video monitoring. MEDICATION: Keppra 1500 mg twice a day. FINDINGS: 1. Background: The patient was recorded in the awake, drowsy, and the sleep states. The overall background amplitude is 5-15 microvolts. A posterior dominant rhythm of 9-10 Hz is observed. 2. Abnormalities: No specific epileptiform discharge or electrographic seizure is seen. No focal or diffuse slowing. 3. Activation: Hyperventilation was performed with good efforts and normal response. Intermittent photic stimulation was performed with photic driving. No specific epileptiform discharge or electrographic seizure induced by hyperventilation or intermittent photic stimulation. IMPRESSION: This EEG is a normal study for the awake and drowsy states. No sleep state was recorded. No focal, lateralizing, specific epileptiform discharge or electrographic seizure is seen. Suggest long-term video EEG monitoring since the patient stated that she has seizure or seizure like episodes described above.. ILYA ENRIQUEZ MD DR: VANNA/surinder JOB#: [id number] / [id number] CHELA
== END 2016-05-06 16:56 | disposition home or self-care (01) ==
LOC: ER 14:31 → 6 SOUTH 17:54
PROVIDERS: ADMIT Internal Medicine; ATTEND Internal Medicine
DX: G40.909 Epilepsy, unspecified, not intractable, without status epilepticus (principal); I10 Essential (primary) hypertension; E78.5 Hyperlipidemia, unspecified; M19.90 Unspecified osteoarthritis, unspecified site; F32.9 Major depressive disorder, single episode, unspecified; E66.01 Morbid (severe) obesity due to excess calories; G47.33 Obstructive sleep apnea (adult) (pediatric); K21.9 Gastro-esophageal reflux disease without esophagitis; F11.90 Opioid use, unspecified, uncomplicated; E78.00 Pure hypercholesterolemia, unspecified; Z68.43 Body mass index [BMI] 50.0-59.9, adult
CPT/HCPCS: 36415; 70450; 80048; 80053; 80177; 81001; 81025; 82553; 83605; 85007; 85027; 87086; 95816; 97165; 99285; G0378; G0481; G0379

== ENCOUNTER → 2016-05-21 | Outpatient (CLI) | payer OTHER ==
[2016-05-06 10:38] VITALS: BP 143/73
[~2016-05-21] MED LIST changes: +TRAM-29 PO
--- NOTE | 2016-06-02 21:30 | EEG ---
DATE OF SERVICE: 05/21/2016 EEG NUMBER: [id number] OBJECTIVE: This is a 35-year-old -[place] female patient with history of seizure or seizure like episode. EEG was requested to evaluate seizure activity. METHODS: Twenty electrodes were applied according to the international 10-20 electrode placement system. EKG monitoring, hyperventilation, intermittent photic stimulation, monopolar and bipolar montages are routinely utilized. The record was obtained on a digital system with video monitoring. This is a long-term video EEG study with total video monitoring and EEG recording time of 24 hours and 22 minutes from 05/21/2016 to 05/22/2016. FINDINGS: 1. Background: The patient was recorded in the awake, drowsy, and sleep states. The overall background amplitude is 10-20 microvolts. Posterior dominant rhythm of 8-9 Hz is observed. 2. Abnormalities: No specific epileptiform discharge or electrographic seizure is seen. No focal or diffuse slowing. Significant EKG artifact noted. 3. Activation: Hyperventilation was performed with good efforts and normal response. Intermittent photic stimulation was performed with photic driving. No specific epileptiform discharge or electrographic seizure induced by hyperventilation or intermittent photic stimulation. IMPRESSION: This is a long-term video EEG study with total video monitoring and EEG recording time of 24 hours and 22 minutes from 05/21/2016 to 05/22/2016. This long-term video EEG study is a normal study for the awake, drowsy and sleep states. No focal, lateralizing, specific epileptiform discharge, or electrographic seizure is seen. EKG artifact noted. ILYA ENRIQUEZ MD DR: VANNA/surinder JOB#: [id number] / [id number] CHELA
== END | disposition home or self-care (01) ==
LOC: SLPLAB 05:44
PROVIDERS: ATTEND Psychiatry & Neurology Neurology
DX: R56.9 Unspecified convulsions (principal)
CPT/HCPCS: 95951

== ENCOUNTER 2016-05-30 03:38 | Emergency (ER) | payer OTHER ==
[~2016-05-30] VITALS: Ht 157.5 cm; Wt 147.4 kg
[~2016-05-30 03:38] MED LIST changes: -TRAM-29 PO
[2016-05-30 04:05] VITALS: BP 131/72
[2016-05-30 04:38] LABS: BILIRUBIN,URINE NEGATIVE (NEG); GLUCOSE,URINE NEGATIVE (NEG); NITRITE,URINE NEGATIVE (NEG); PROTEIN,URINE NEGATIVE (NEG-TRACE); UROBILINOGEN,URINE 0.2 mg/dL (0.2 mg/dL)
[2016-05-30 04:44] LABS: BACTERIA,URINE 0 /HPF (0-FEW); RBC,URINE OCC /HPF (0-2); SQUAMOUS EPITHELIAL CELL,UR MANY /LPF; WBC,URINE OCC /HPF (0-4)
[2016-05-30 04:53] LABS: CALCIUM 9.9 mg/dL (8.5-10.1); CREATININE 0.8 mg/dL (0.6-1.0); GFR 99.4; POTASSIUM 4.1 mmol/L (3.5-5.1)
[2016-05-30] MEDS ORDERED: IV NORMAL SALINE 1000ML BAG 1,000 ML IV ONE (05:00)
[2016-05-30] MEDS ORDERED: ONDANSETRON PF 4 MG/2 ML VIAL. IV ONE (05:00)
[2016-05-30] MEDS ORDERED: HYDROMORPHONE 2 MG/ML VIAL. IV ONE (05:00)
--- NOTE | 2016-05-30 05:03 | RAD ---
PROCEDURE CT abdomen and pelvis without contrast HISTORY left lower quadrant pain TECHNIQUE CT of the abdomen and pelvis was done without contrast. One or more of the following individualized dose reduction techniques were utilized for this examination: 1. Automated exposure control; 2. Adjustment of the mA and/or kV according to patient size; 3. Use of iterative reconstruction technique.One or more of the following individualized dose reduction techniques were utilized for this examination: 1. Automated exposure control; 2. Adjustment of the mA and/or kV according to patient size; 3. Use of iterative reconstruction technique. COMPARISON None Findings Lung bases are clear. There is no effusion. A liver lesion is not identified. Spleen and adrenal glands are normal. Pancreas is normal. There is no mass or hydronephrosis or calculus in the kidneys. A definite ureteral calculus is not identified although multiple phleboliths in the pelvis make evaluation more difficult. A nonobstructing calculus could not be excluded. There is no adenopathy or ascites. Appendix is normal. There is no bowel obstruction. There is mild inflammation superficially cephalad to the umbilicus near the midline, etiology is not determined. Uterus and left ovary are within normal limits. The right ovary is not identified. There is an intrauterine contraceptive device in the uterus. IMPRESSION Focus of superficial soft tissue swelling and inflammation above the umbilicus in the midline. No renal or ureteral calculus noted, multiple phleboliths in the pelvis make evaluation more difficult, no obvious ureteral calculus Right ovary is not identified, uterus and left ovary are within normal limits. Electronically signed by: Onesimo Rogers MD (May 30, 2016 05:02:25)
[2016-05-30] MEDS ORDERED: TRAM-29 PO (05:11)
--- NOTE | 2016-05-30 05:11 | PHYS DOC ---
Past Medical History Past Medical History: Arthritis, Depression, GERD, High Cholesterol, Hypertension, Seizure, Additional Disease Additional Past Medical Histor: viral encephalitis, sleep apnea, CRS, seasonal allergies,obesity Past Surgical History: Other Additional Past Surgical Histo: carpal tunnel, removal of rt ovary and tube Alcohol Use: Rarely Drug Use: Opiates Adult General Chief Complaint Chief Complaint: ABDOMINAL PAIN HPI HPI Patient is a 35 year old female who presents here today complaining of nausea vomiting diarrhea abdominal pain. Patient denies any dysuria frequency or urgency. Patient has a vaginal discharge. Patient reports the pain started earlier this afternoon. Patient denies any fevers shakes chills cough cold rhinorrhea. Patient's abdominal exam was significant for tenderness to palpation to her left lower quadrant. Patient will hernia defect. Patient's abdomen was soft nondistended no rebound or guarding. Patient did not exhibit any signs or symptoms consistent with an acute surgical abdomen. Patient's ER workup is unremarkable. Patient's labs and CT scan were all within normal limits. Patient is given adequate pain meds in the ED was discharged home in stable condition. Review of Systems Review of Systems Constitutional: Denies fever or chills [] Eyes: Denies change in visual acuity, redness, or eye pain [] All other review systems are negative except as documented in the history of present illness portion. Current Medications Current Medications Current Medications Medications (Trade) Dose Ordered Sig/Renuka Start Time Stop Time Status Last Admin Dose Admin Hydromorphone HCl (Dilaudid) 1 mg 1X ONCE 05/30/16 05:00 05/30/16 05:01 DC 05/30/16 04:57 1 MG Ondansetron HCl (Zofran) 4 mg 1X ONCE 05/30/16 05:00 05/30/16 05:01 DC 05/30/16 04:53 4 MG Sodium Chloride (Iv Sodium Chloride 0.9% 1000ml Bag) 1,000 ml @ 1,000 mls/hr 1X ONCE 05/30/16 05:00 05/30/16 05:55 DC 05/30/16 04:50 1,000 MLS/HR Allergies Allergies Allergies Coded Allergies Type Severity Reaction Last Updated Verified cefditoren Allergy Severe Swelling 04/08/16 Yes Sulfa (Sulfonamide Antibiotics) Allergy Intermediate Swelling 04/08/16 Yes ciprofloxacin Allergy Intermediate Swelling 04/08/16 Yes sulfamethoxazole Allergy Intermediate Swelling 04/08/16 Yes trimethoprim Allergy Intermediate Swelling 04/08/16 Yes Physical Exam Physical Exam Constitutional: Well developed, well nourished, no acute distress, non-toxic appearance. [] HENT: Normocephalic, atraumatic, bilateral external ears normal, oropharynx moist, no oral exudates, nose normal. [] Eyes: PERRLA, EOMI, conjunctiva normal, no discharge. [] Neck: Normal range of motion, no tenderness, supple, no stridor. [] Cardiovascular:Heart rate regular rhythm, no murmur [] Lungs & Thorax: Bilateral breath sounds clear to auscultation [] Abdomen: Bowel sounds normal, soft, no tendernessmild tend palp diffusely greatest in the left lower quadrant. Skin: Warm, dry, no erythema, no rash. [] Back: No tenderness, no CVA tenderness. [] Extremities: No tenderness, no cyanosis, no clubbing, ROM intact, no edema. [] Neurologic: Alert and oriented X 3, normal motor function, normal sensory function, no focal deficits noted. [] Psychologic: Affect normal, judgement normal, mood normal. [] Current Patient Data Vital Signs Vital Signs Date Time Temp Pulse Resp B/P Pulse Ox O2 Delivery O2 Flow Rate FiO2 05/30/16 04:57 18 05/30/16 04:05 98.4 82 131/72 99 Room Air 98.4 Lab Values Laboratory Tests Test 05/30/16 04:06 05/30/16 04:13 05/30/16 04:37 Urine Collection Type Unknown Urine Color Yellow Urine Clarity Clear Urine pH 6.0 Urine Specific [place] 1.025 Urine Protein Negativemg/dL (NEG-TRACE) Urine Glucose (UA) Negativemg/dL (NEG) Urine Ketones (Stick) Negativemg/dL (NEG) Urine Blood Trace (NEG) Urine Nitrite Negative (NEG) Urine Bilirubin Negative (NEG) Urine Urobilinogen Dipstick 0.2mg/dL (0.2 mg/dL) Urine Leukocyte Esterase Negative (NEG) Urine RBC Occ/HPF (0-2) Urine WBC Occ/HPF (0-4) Urine Squamous Epithelial Cells Many/LPF Urine Bacteria 0/HPF (0-FEW) Urine Mucus Mod/LPF POC Urine HCG, Qualitative Hcg negative (Negative) Sodium Level 145mmol/L (136-145) Potassium Level 4.1mmol/L (3.5-5.1) Chloride Level 102mmol/L (98-107) Carbon Dioxide Level 34mmol/L (21-32) H Anion Gap 9 (6-14) Blood Urea Nitrogen 14mg/dL (7-20) Creatinine 0.8mg/dL (0.6-1.0) Estimated GFR (Cockcroft-Gault) 99.4 Glucose Level 106mg/dL (70-99) H Calcium Level 9.9mg/dL (8.5-10.1) Laboratory Tests 05/30/16 04:37 EKG EKG [] Radiology/Procedures Radiology/Procedures [] Course & Med Decision Making Course & Med Decision Making Pertinent Labs and Imaging studies reviewed. (See chart for details) [] Dragon Disclaimer Dragon Disclaimer This electronic medical record was generated, in whole or in part, using a voice recognition dictation system. Departure Departure Impression: Primary Impression: Pelvic pain Additional Impression: Abdominal pain Disposition: 01 HOME, SELF-CARE Condition: IMPROVED Referrals: CÉSAR GIPSON MD (PCP) Patient Instructions: Abdominal Pain (Nonspecific) Scripts Tramadol Hcl (Ultram)50 Mg Tablet1 Tab PO Q6HRS #14 TAB Prov:FRED BUTTERFIELD MD 05/30/16 Problem Qualifiers FRED BUTTERFIELD MD May 30, 2016 05:11
== END 2016-05-30 05:30 | disposition home or self-care (01) ==
LOC: ER 03:38
DX: R10.2 Pelvic and perineal pain (principal); R10.32 Left lower quadrant pain; N89.8 Other specified noninflammatory disorders of vagina; M19.90 Unspecified osteoarthritis, unspecified site; F32.9 Major depressive disorder, single episode, unspecified; K21.9 Gastro-esophageal reflux disease without esophagitis; E78.00 Pure hypercholesterolemia, unspecified; I10 Essential (primary) hypertension; E66.9 Obesity, unspecified; G47.30 Sleep apnea, unspecified; F11.10 Opioid abuse, uncomplicated; Z88.8 Allergy status to other drugs, medicaments and biological substances; Z88.1 Allergy status to other antibiotic agents; Z88.2 Allergy status to sulfonamides; Z68.43 Body mass index [BMI] 50.0-59.9, adult
CPT/HCPCS: 36415; 74176; 80048; 81001; 81025; 96361; 96374; 96375; 99285; J1170; J2405; J7030

== ENCOUNTER → 2016-08-14 | Outpatient (CLI) | payer OTHER ==
[~2016-08-14] MED LIST changes: +TRAM-29 PO
[2016-08-14 15:40] LABS: CHOLESTEROL/HDL RATIO 4.7
== END | disposition home or self-care (01) ==
LOC: LAB 14:20
PROVIDERS: ATTEND Internal Medicine Cardiovascular Disease
DX: E78.2 Mixed hyperlipidemia (principal)
CPT/HCPCS: 36415; 80061

== ENCOUNTER → 2016-10-20 | Outpatient (CLI) | payer OTHER ==
[~2016-10-20] MED LIST changes: -OLME1TAB PO; +OLME1TAB21 PO; -TRAM-29 PO; +TRAM-48 PO
[2016-10-20 12:39] LABS: CHOLESTEROL/HDL RATIO 3.9
== END | disposition home or self-care (01) ==
LOC: LAB 11:50
PROVIDERS: ATTEND Internal Medicine Cardiovascular Disease
DX: E78.2 Mixed hyperlipidemia (principal)
CPT/HCPCS: 36415; 80061

== ENCOUNTER 2017-05-21 14:49 | Emergency (ER) | payer OTHER ==
[2017-05-21 16:03] LABS: INFLUENZA A PATIENT NEGATIVE (NEGATIVE); INFLUENZA B PATIENT NEGATIVE (NEGATIVE); OBC FLU VALID
== END 2017-05-21 16:17 | disposition home or self-care (01) ==
LOC: ER 14:49
DX: R05 Cough (principal); R50.9 Fever, unspecified; M79.1 Myalgia; J34.89 Other specified disorders of nose and nasal sinuses; E78.00 Pure hypercholesterolemia, unspecified; I10 Essential (primary) hypertension; K21.9 Gastro-esophageal reflux disease without esophagitis; F11.10 Opioid abuse, uncomplicated; Z88.2 Allergy status to sulfonamides; Z88.1 Allergy status to other antibiotic agents; Z88.8 Allergy status to other drugs, medicaments and biological substances
CPT/HCPCS: 87804; 87804-59; 99284

== ENCOUNTER → 2017-07-15 | Day surgery (SDC) | payer OTHER ==
[~2017-07-15] MED LIST changes: -BENA1TAB6; -CALC-98; -CYCL10TA2; -CYCL5TAB PO; -DULO60CA44; -DULO60CA6 PO; -FERR-26 PO; -HYDR-2680 PO; -HYDR-2762 PO; -IBUP-1060; -L-NO1TBD14 PO; -LEVE10007 PO; +LIDOCAINE 1% PF 2 ML VIAL. ID; +LIDOCAINE 2% 100 MG/5 ML SYRINGE.; -LORA10CA; -LORA10TA3; -METH4TAB2 PO; +MIDAZOLAM HCL/PF 2 MG/2 ML VIAL. IV; -MULT-212 PO; -NAPR500T3; -NAPR500T8 PO; -NITR100C62 PO; -OLME1TAB21 PO; -OMEP40CA5; -OMEP40CA5 PO; -ONDA4TAB7 PO; -PROM25VI5 PO; +PROPOFOL 20 ML IV; -SIMV40TA3; -SIMV40TA3 PO; -TRAM-48 PO; +fentaNYL PF VIAL 100 MCG/2 ML VIAL IV
[2017-07-15 08:08] LABS: NEG OBC UR NEG; POS OBC UR POS; U PREG PATIENT NEGATIVE (NEG)
[2017-07-15] MEDS: IV RINGERS,LACTATED 1000ML 1,000 ML IV (08:16)
== END ==
LOC: ENDOS 07:37
DX: K29.50 Unspecified chronic gastritis without bleeding (principal); K44.9 Diaphragmatic hernia without obstruction or gangrene; K21.9 Gastro-esophageal reflux disease without esophagitis; I10 Essential (primary) hypertension; E78.5 Hyperlipidemia, unspecified; G47.30 Sleep apnea, unspecified; Z88.2 Allergy status to sulfonamides; Z88.1 Allergy status to other antibiotic agents
CPT/HCPCS: 43235; 81025; J2704

== ENCOUNTER → 2017-08-04 | Outpatient (CLI) | payer OTHER ==
[~2017-08-04] MED LIST changes: -LIDOCAINE 1% PF 2 ML VIAL. ID; -LIDOCAINE 2% 100 MG/5 ML SYRINGE.; -MIDAZOLAM HCL/PF 2 MG/2 ML VIAL. IV; -PROPOFOL 20 ML IV; +SINCALIDE 5 MCG VIAL IV; -fentaNYL PF VIAL 100 MCG/2 ML VIAL IV
== END | disposition home or self-care (01) ==
LOC: US 07:46
DX: R10.11 Right upper quadrant pain (principal); R11.0 Nausea; I10 Essential (primary) hypertension
CPT/HCPCS: 76705; 78226; 96374; 96375; A9537; J2805

== ENCOUNTER → 2018-01-06 | Outpatient (CLI) | payer OTHER ==
[2017-07-15 08:55] VITALS: BP 120/80
[~2018-01-06] MED LIST changes: +ATORVASTATIN CA80 MG PO; +BENA1TAB6; +CALC-98; +CYCL10TA2; +CYCL5TAB PO; +DULO60CA44; +DULO60CA6 PO; +FERR325T14 PO; +HYDR-2680 PO; +HYDR-2762 PO; +IBUP-1060; +L-NO1TBD14 PO; +LEVE10007 PO; +LORA10CA; +LORA10TA3; +METH4TAB2 PO; +MULT-212 PO; +NAPR-514; +NAPR500T8 PO; +NITR100C62 PO; +OLME1TAB21 PO; +OMEP40CA5; +OMEP40CA5 PO; +ONDA4TAB7 PO; +PRED50TA PO; +PROM25VI5 PO; +SIMV40TA3; +SIMV40TA3 PO; -SINCALIDE 5 MCG VIAL IV; +TRAM-48 PO
[2018-01-06 09:47] LABS: HEMATOCRIT 37.7 % (36.0-47.0); HEMOGLOBIN 12.2 g/dL (12.0-15.5)
[2018-01-06 10:22] LABS: CHOLESTEROL/HDL RATIO 3.9
== END | disposition home or self-care (01) ==
LOC: LAB 09:15
PROVIDERS: ATTEND Internal Medicine Cardiovascular Disease
DX: E63.8 Other specified nutritional deficiencies (principal); I10 Essential (primary) hypertension; G40.802 Other epilepsy, not intractable, without status epilepticus; Z87.891 Personal history of nicotine dependence
CPT/HCPCS: 36415; 80061; 83695; 85014; 85018

== ENCOUNTER → 2018-03-08 | Outpatient (CLI) | payer OTHER ==
[2017-07-15 08:55] VITALS: BP 120/80
[~2018-03-08] MED LIST changes: -HYDR-2762 PO; +HYDR-2765 PO
[2018-03-08 13:36] LABS: BASO # 0.1 x10^3/uL (0.0-0.2); BASO % 1 % (0-3); EOS # 0.1 x10^3/uL (0.0-0.7); EOS % 1 % (0-3); HEMATOCRIT 37.5 % (36.0-47.0); HEMOGLOBIN 12.2 g/dL (12.0-15.5); LYMPH # 2.1 x10^3/uL (1.0-4.8); LYMPH % 22 % (24-48); MEAN CORPUSCULAR HEMOGLOBIN 23 pg (25-35); MEAN CORPUSCULAR HGB CONC 32 g/dL (31-37); MEAN CORPUSCULAR VOLUME 71 fL (79-100); MONO # 0.8 x10^3/uL (0.0-1.1); MONO % 9 % (0-9); NEUT # 6.4 x10^3uL (1.8-7.7); NEUT % 67 % (31-73); PLATELET COUNT 248 x10^3/uL (140-400); RED BLOOD COUNT 5.25 x10^6/uL (3.50-5.40); RED CELL DISTRIBUTION WIDTH 15.1 % (11.5-14.5); RETIC COUNT 1.7 % (0.5-2.5); WHITE BLOOD COUNT 9.5 x10^3/uL (4.0-11.0)
[2018-03-08 14:40] LABS: HYPOCHROMIA SLIGHT; MICROCYTOSIS MARKED; PLT ESTIMATE ADEQUATE (ADEQUATE); POLYCHROMASIA SLIGHT
== END | disposition home or self-care (01) ==
LOC: LAB 13:11
PROVIDERS: ATTEND Internal Medicine Cardiovascular Disease
DX: I10 Essential (primary) hypertension (principal); R56.9 Unspecified convulsions
CPT/HCPCS: 36415; 85025; 85045

== ENCOUNTER → 2018-05-28 | Outpatient (CLI) | payer OTHER ==
[2017-07-15 08:55] VITALS: BP 120/80
[2018-05-28 09:59] LABS: CHOLESTEROL/HDL RATIO 3.4
== END | disposition home or self-care (01) ==
LOC: LAB 08:47
PROVIDERS: ATTEND Internal Medicine Cardiovascular Disease
DX: E78.2 Mixed hyperlipidemia (principal)
CPT/HCPCS: 36415; 80061; 83695

== ENCOUNTER 2018-09-02 17:47 | Emergency (ER) | payer OTHER ==
[~2018-09-02] VITALS: Ht 157.5 cm; Wt 145.1 kg
[2018-09-02 17:52] VITALS: BP 156/94
--- NOTE | 2018-09-02 18:24 | RAD ---
EXAM: Left hand, 3 views. HISTORY: Fall. Pain. COMPARISON: None. FINDINGS: 3 views left hand are obtained. There is no fracture, dislocation or subluxation. There are few benign bone islands. There is no radiodense foreign body. IMPRESSION: No acute osseous finding. Electronically signed by: Harriett Adame MD (09/02/2018 6:21 PM) [facility]
--- NOTE | 2018-09-02 18:49 | PHYS DOC ---
Past Medical History Past Medical History: Arthritis, Depression, GERD, High Cholesterol, Hype rtension, Seizure, Additional Disease Additional Past Medical Histor: viral encephalitis, sleep apnea, CRS, seasonal allergies,obesity Past Surgical History: Other Additional Past Surgical Histo: carpal tunnel, removal of rt ovary and tube Alcohol Use: None Drug Use: None Adult General Chief Complaint Chief Complaint: HAND PROBLEM HPI HPI Patient is a 38 year old female who presents is 6 out of 10 left hand pain that began this morning after she slipped and fell. Denies any loss of consciousness. Pain on range of motion. Describes pain as sharp and intermittent. Review of Systems Review of Systems Constitutional: Denies fever or chills [] Musculoskeletal: Reports left hand pain Integument: Denies rash or skin lesions [] Neurologic: Denies headache, focal weakness or sensory changes [] All other systems were reviewed and found to be within normal limits, except as documented in this note. Allergies Allergies Allergies Coded Allergies Type Severity Reaction Last Updated Verified cefditoren Allergy Severe Swelling 07/15/17 Yes Sulfa (Sulfonamide Antibiotics) Allergy Intermediate Swelling 07/15/17 Yes ciprofloxacin Allergy Intermediate Swelling 07/15/17 Yes sulfamethoxazole Allergy Intermediate Swelling 07/15/17 Yes trimethoprim Allergy Intermediate Swelling 07/15/17 Yes lamotrigine Adverse Reaction Intermediate THRUSH 07/15/17 Yes Physical Exam Physical Exam Constitutional: Well developed, well nourished, no acute distress, non-toxic appearance. [] Skin: Warm, dry, no erythema, no rash. [] Back: No tenderness, no CVA tenderness. [] Extremities: left hand with no deformity, no tenderness to the left hand, Full ROM to the hand. Adequate radial, medial and ulnar sensation to the left hand. +2 left radial pulse. Cap refill < 2 seconds. Neurologic: Alert and oriented X 3, normal motor function, normal sensory function, no focal deficits noted. [] Psychologic: Affect normal, judgement normal, mood normal. [] Current Patient Data Vital Signs Vital Signs Date Time Temp Pulse Resp B/P (MAP) Pulse Ox O2 Delivery O2 Flow Rate FiO2 09/02/18 17:52 98.4 84 18 156/94 (114) 97 Room Air 98.4 EKG EKG [] Radiology/Procedures Radiology/Procedures []PROCEDURE: HAND LEFT 3V EXAM: Left hand, 3 views. HISTORY: Fall. Pain. COMPARISON: None. FINDINGS: 3 views left hand are obtained. There is no fracture, dislocation or subluxation. There are few benign bone islands. There is no radiodense foreign body. IMPRESSION: No acute osseous finding. Electronically signed by: Danish Yeung MD (09/02/2018 6:21 PM) [facility] DICTATED and SIGNED BY: DANISH YEUNG MD DATE: 09/02/181820 Course & Med Decision Making Course & Med Decision Making Pertinent Labs and Imaging studies reviewed. (See chart for details) This is a 38-year-old female patient presenting with left eye pain after falling. Left hand x-rays are negative for any acute findings. Ice elevation encouraged. Follow-up with altered 1 week. OTC pain relievers. Dragon Disclaimer Dragon Disclaimer This electronic medical record was generated, in whole or in part, using a voice recognition dictation system. Departure Departure Impression: Primary Impression: Contusion of left hand Additional Impression: Fall from standing Disposition: 07 AGAINST MEDICAL ADVICE Condition: STABLE Referrals: FREDDY BRODY MD (PCP) CASSIA WARD II, MD follow up in 1 week Patient Instructions: Contusion, [id number] Additional Instructions: You were evaluated for left hand contusion. Your left hand x-rays are negative for any acute findings. Ice elevate the extremity. Take [id number] pain relievers as needed. Problem Qualifiers Primary Impression: Contusion of left hand Encounter type: initial encounter Qualified Codes: S60.222A - Contusion of left hand, initial encounter Additional Impression: Fall from standing Encounter type: initial encounter Qualified Codes: W19.XXXA - Unspecified fall, initial encounter BALJEETMINO ALATORRE COMMUTATOR PRESSER Sep 02, 2018 18:49
== END 2018-09-02 18:55 | disposition home or self-care (01) ==
LOC: ER 17:47
DX: S60.222A Contusion of left hand, initial encounter (principal); E78.00 Pure hypercholesterolemia, unspecified; I10 Essential (primary) hypertension; K21.9 Gastro-esophageal reflux disease without esophagitis; E66.9 Obesity, unspecified; Z68.43 Body mass index [BMI] 50.0-59.9, adult; Z88.1 Allergy status to other antibiotic agents; Z88.2 Allergy status to sulfonamides; Z88.8 Allergy status to other drugs, medicaments and biological substances; W01.0XXA Fall on same level from slipping, tripping and stumbling without subsequent striking against object, initial encounter; Y93.89 Activity, other specified; Y92.89 Other specified places as the place of occurrence of the external cause; Y99.8 Other external cause status
CPT/HCPCS: 73130; 99284

== ENCOUNTER → 2019-01-19 | Outpatient (CLI) | payer OTHER ==
[~2019-01-19] MED LIST changes: -DULO60CA44; +DULO60CA45; +IOHEXOL 240 MG/ML 50ML VIAL. PO ONE; +IOHEXOL 300 MG/ML 100ML VIAL. IV ONE; +OMEP40CA45; +OMEP40CA45 PO; -OMEP40CA5; -OMEP40CA5 PO
--- NOTE | 2019-01-19 16:09 | RAD ---
EXAM: CT ABDOMEN/PELVIS WITH CONTRAST. HISTORY: Abdominal and pelvic pain. TECHNIQUE: Computed tomography of the abdomen and pelvis was performed after the intravenous administration of iodinated contrast. COMPARISON: 08/04/2017. FINDINGS: Lung windows through the visualized portions of the bases reveal mild atelectasis. Bone windows reveal no suspicious lesions. The appendix is not inflamed. The uterus and ovaries are unremarkable by CT. There is no small bowel obstruction. The gallbladder appears to be packed with radiolucent stones. There is no pericholecystic inflammation. The common duct is at the upper limits of normal caliber at 7 mm without a clear cause for distal obstruction. The liver, pancreas, adrenal glands, spleen and kidneys are unremarkable. There are no pathologically enlarged lymph nodes. Subcutaneous scarring is noted superior to the umbilicus. IMPRESSION: 1. Suspect cholelithiasis. The common duct is at the upper limits of normal caliber. Ultrasound could further evaluate. *One or more of the following individualized dose reduction techniques were utilized for this examination: 1. Automated exposure control. 2. Adjustment of the mA and/or kV according to patient size. 3. Use of iterative reconstruction technique. Electronically signed by: Jarrell Zavala MD (01/19/2019 4:06 PM) [facility]
== END | disposition home or self-care (01) ==
LOC: CT 10:47
PROVIDERS: ATTEND Internal Medicine Cardiovascular Disease
DX: J98.11 Atelectasis (principal)
CPT/HCPCS: 74177; Q9966; Q9967

== ENCOUNTER → 2019-02-01 | Outpatient (CLI) | payer OTHER ==
[~2019-02-01] MED LIST changes: -IOHEXOL 240 MG/ML 50ML VIAL. PO ONE; -IOHEXOL 300 MG/ML 100ML VIAL. IV ONE; +SIMV40TA18; +SIMV40TA18 PO; -SIMV40TA3; -SIMV40TA3 PO
[2019-02-01 10:59] LABS: CALCIUM 9.1 mg/dL (8.5-10.1); CREATININE 0.7 mg/dL (0.6-1.0); GFR 113.9
== END | disposition home or self-care (01) ==
LOC: LAB 10:08
PROVIDERS: ATTEND Internal Medicine Cardiovascular Disease
DX: I10 Essential (primary) hypertension (principal); E78.2 Mixed hyperlipidemia; M54.5 Low back pain; E66.01 Morbid (severe) obesity due to excess calories
CPT/HCPCS: 36415; 80048; 82306; 83735; 86705; 86709; 86803; 87340

== ENCOUNTER → 2019-03-09 | Outpatient (CLI) | payer OTHER ==
[2019-03-10 01:07] LABS: HEMOGLOBIN A1C 6.1 % (4.8-5.6)
== END | disposition home or self-care (01) ==
LOC: LAB 11:20
PROVIDERS: ATTEND Internal Medicine Cardiovascular Disease
DX: R73.9 Hyperglycemia, unspecified (principal)
CPT/HCPCS: 36415; 82947; 83036

== ENCOUNTER → 2019-06-02 | Outpatient (CLI) | payer MEDICAID ==
[2019-06-02 11:33] LABS: ALBUMIN 3.5 g/dL (3.4-5.0); ALBUMIN/GLOBULIN RATIO 0.9 (1.0-1.7); CALCIUM 9.4 mg/dL (8.5-10.1); CREATININE 0.8 mg/dL (0.6-1.0); GFR 97.7; MAGNESIUM 1.9 mg/dL (1.8-2.4); TOTAL BILIRUBIN 0.2 mg/dL (0.2-1.0); TOTAL PROTEIN 7.4 g/dL (6.4-8.2)
== END | disposition home or self-care (01) ==
LOC: LAB 10:31
PROVIDERS: ATTEND Internal Medicine Cardiovascular Disease
DX: M54.5 Low back pain (principal); E78.2 Mixed hyperlipidemia; I10 Essential (primary) hypertension; R53.83 Other fatigue
CPT/HCPCS: 36415; 80053; 83735

== ENCOUNTER 2019-10-02 11:56 | Emergency (ER) | payer MEDICAID ==
[~2019-10-02] VITALS: Ht 157.5 cm; Wt 145.4 kg
[2019-10-02 12:32] VITALS: BP 164/87
--- NOTE | 2019-10-02 13:20 | RAD ---
3 views right ankle HISTORY: Right ankle pain AP lateral oblique views The tibiotalar relationship is normal. The visualized osseous structures appear normal. IMPRESSION: No acute findings. Electronically signed by: Walker Pham III, MD (10/02/2019 1:17 PM) [id number]
[2019-10-02] MEDS ORDERED: IBUP-1007 PO (13:26)
--- NOTE | 2019-10-02 13:27 | PHYS DOC ---
Past Medical History Past Medical History: Arthritis, Depression, GERD, High Cholesterol, Hype rtension, Seizure, Additional Disease, Other Additional Past Medical Histor: viral encephalitis,sleep apnea,CRS,seasonal allergies,obesity,PLANTAR FASCI Past Surgical History: Other Additional Past Surgical Histo: carpal tunnel, removal of rt ovary and tube Smoking Status: Former Smoker Alcohol Use: None Drug Use: None General Adult EDM: Chief Complaint: ANKLE PROBLEM HPI: HPI: Patient is a 39 year old AA female who presents to the emergency department with complaints of right lateral ankle and right posterior heel pain after being on her feet all day yesterday. Patient denies any known specific injury. States that she sprained the same ankle several years ago. She denies any decreased range of motion, she reports increased pain with weightbearing. She currently rates her pain a 10 out of 10 on the pain scale, she states that last night she took a hydrocodone for the pain with little relief. Patient reports history of [id number] arthritis in her knees. She reports that the ankle pain radiates up the back of her leg. She denies any redness, numbness, tingling, or swelling to the affected extremity. She denies any cough, shortness of breath, abdominal pain, nausea, vomiting, diarrhea, or rash. Review of Systems: Review of Systems: Complete review of systems is negative unless otherwise documented in the HPI. Heart Score: Risk Factors: Risk Factors: DM, Current or recent (<one month) smoker, HTN, HLP, family history of CAD, obesity. Risk Scores: Score 0 - 3: 2.5% MACE over next 6 weeks - Discharge Home Score 4 - 6: 20.3% MACE over next 6 weeks - Admit for Clinical Observation Score 7 - 10: 72.7% MACE over next 6 weeks - Early Invasive Strategies Allergies: Allergies: Allergies Coded Allergies Type Severity Reaction Last Updated Verified cefditoren Allergy Severe Swelling 07/15/17 Yes Sulfa (Sulfonamide Antibiotics) Allergy Intermediate Swelling 07/15/17 Yes ciprofloxacin Allergy Intermediate Swelling 07/15/17 Yes sulfamethoxazole Allergy Intermediate Swelling 07/15/17 Yes trimethoprim Allergy Intermediate Swelling 07/15/17 Yes lamotrigine Adverse Reaction Intermediate THRUSH 07/15/17 Yes Physical Exam: PE: Constitutional: Well developed, well nourished, no acute distress, non-toxic appearance, morbidly obese. [] HENT: Normocephalic, atraumatic, bilateral external ears normal, nose normal. [] Eyes: PERRLA, EOMI, conjunctiva normal, no discharge. [] Neck: Normal range of motion, no stridor. [] Cardiovascular:Heart rate regular rhythm Lungs & Thorax: Respirations even and unlabored, no retractions, no respiratory distress Skin: Warm, dry, no erythema, no rash. [] Extremities: Right ankle, lateral tenderness to palpation, no crepitus, no obvious deformity, 2+ pedal pulse 2+ posterior tibial pulse, no cyanosis, ROM intact, no edema. [] Neurologic: Alert and oriented X 3, no focal deficits noted. [] Psychologic: Affect normal, judgement normal, mood normal. [] Current Patient Data: Vital Signs: Vital Signs Date Time Temp Pulse Resp B/P (MAP) Pulse Ox O2 Delivery O2 Flow Rate FiO2 10/02/19 12:32 98.5 84 17 164/87 (112) 98 Room Air 98.5 EKG: EKG: [] Radiology/Procedures: Radiology/Procedures: [] Course & Med Decision Making: Course & Med Decision Making Pertinent Labs and Imaging studies reviewed. (See chart for details) [] Dragon Disclaimer: Dragon Disclaimer: This electronic medical record was generated, in whole or in part, using a voice recognition dictation system. Departure Departure Impression: Primary Impression: Acute right ankle pain Disposition: 01 HOME, SELF-CARE Referrals: FREDDY BRODY MD (PCP) DAO REED MD Patient Instructions: Ankle Pain Additional Instructions: Fill prescription(s) and use as directed. Recommend application of ice, elevation, and rest of affected extremity. Wear the Benjamin wrap that was applied as needed for comfort. Activity as tolerated. Follow-up with your orthopedic doctor Dr. Reed if symptoms persist, return to the ER if your symptoms worsen. Scripts Ibuprofen (IBUPROFEN) 600 Mg Tablet 600 MG PO PRN Q6HRS PRN for INFLAMMATION for 7 Days, #30 TAB 0 Refills Prov: ALFREDO ESCALANTE APRN 10/02/19 Justicifation of Admission Dx: Justifications for Admission: Justification of Admission Dx: N/A ALFREDO ESCALANTE APRN Oct 02, 2019 13:27
[2019-10-02] MEDS ORDERED: IBUPROFEN 200 MG TABLET. PO ONE (13:30)
== END 2019-10-02 13:40 | disposition home or self-care (01) ==
LOC: ER 11:56
DX: M25.571 Pain in right ankle and joints of right foot (principal); K21.9 Gastro-esophageal reflux disease without esophagitis; E78.00 Pure hypercholesterolemia, unspecified; I10 Essential (primary) hypertension; Z87.891 Personal history of nicotine dependence; Z88.1 Allergy status to other antibiotic agents; Z88.2 Allergy status to sulfonamides; Z88.8 Allergy status to other drugs, medicaments and biological substances
CPT/HCPCS: 73610; 99283

== ENCOUNTER → 2019-12-13 | Outpatient (CLI) | payer MEDICAID ==
[~2019-12-13] MED LIST changes: +IBUP-1007 PO
[2019-12-13 12:28] LABS: ALBUMIN 3.3 g/dL (3.4-5.0); ALBUMIN/GLOBULIN RATIO 0.8 (1.0-1.7); CALCIUM 9.3 mg/dL (8.5-10.1); CREATININE 0.8 mg/dL (0.6-1.0); GFR 97.1; POTASSIUM 3.7 mmol/L (3.5-5.1); TOTAL BILIRUBIN 0.3 mg/dL (0.2-1.0); TOTAL PROTEIN 7.5 g/dL (6.4-8.2)
[2019-12-13 13:04] LABS: CHOLESTEROL/HDL RATIO 3.2
== END | disposition home or self-care (01) ==
LOC: LAB 11:32
PROVIDERS: ATTEND Internal Medicine Cardiovascular Disease
DX: I11.9 Hypertensive heart disease without heart failure (principal); E11.9 Type 2 diabetes mellitus without complications; E78.2 Mixed hyperlipidemia
CPT/HCPCS: 80053; 80061; 83036; 83700; 83735; 84443; 86141

== ENCOUNTER 2019-12-29 00:01 | Emergency (ER) | payer MEDICAID ==
[~2019-12-29] VITALS: Ht 157.5 cm; Wt 144.0 kg
--- NOTE | 2019-12-29 01:03 | PHYS DOC ---
Past Medical History Past Medical History: Arthritis, Depression, GERD, High Cholesterol, Hype rtension, Seizure, Additional Disease, Other Additional Past Medical Histor: viral encephalitis,sleep apnea,CRS,seasonal allergies,obesity,PLANTAR FASCI Past Surgical History: Other Additional Past Surgical Histo: carpal tunnel, removal of rt ovary and tube Smoking Status: Former Smoker Alcohol Use: None Drug Use: None General Adult EDM: Chief Complaint: VAGINAL BLEEDING HPI: HPI: The history was obtained from the patient. Patient is a 39-year-old female with PMH notable for multiple coronaries including ovarian cystectomy who presents with a chief complaint of vaginal bleeding. Patient states she has had vaginal bleeding beginning 5 days prior to arrival. She states the bleeding at first was the normal amount of her period. However she states today the bleeding increased in frequency. She also notes clot passage approximately the size of quarters. Notes she has soaked through 3 tampons today. She notes that she typically has menstruation every 28 days that last for 5 days. States this cycle seems to have occurred 1 week early. States she was started on oral contraceptive pills in May 2019 for ovarian cyst and hormone imbalance issues. She does note some suprapubic abdominal cramping that started upon arrival to the emergency department. Has not tried medicine at home for relief. Denies ch est pain or shortness of breath. Denies syncope. Denies urinary symptoms. Denies any bleeding disorders. Follows with GAMING DIRECTOR Dr. Morrison. States the first day of her last menstrual period was 1 month ago. No other complaints. Review of Systems: Review of Systems: Constitutional: Denies fever or chills. [] Eyes: Denies change in visual acuity. [] HENT: Denies nasal congestion or sore throat. [] Respiratory: Denies cough or shortness of breath. [] Cardiovascular: Denies chest pain or edema. [] GI: Denies abdominal pain, nausea, vomiting, bloody stools or diarrhea. [] : Positive for vaginal bleeding Musculoskeletal: Denies back pain or joint pain. [] Integument: Denies rash. [] Neurologic: Denies headache, focal weakness or sensory changes. [] Endocrine: Denies polyuria or polydipsia. [] Lymphatic: Denies swollen glands. [] Psychiatric: Denies depression or anxiety. [] Heart Score: Risk Factors: Risk Factors: DM, Current or recent (<one month) smoker, HTN, HLP, family history of CAD, obesity. Risk Scores: Score 0 - 3: 2.5% MACE over next 6 weeks - Discharge Home Score 4 - 6: 20.3% MACE over next 6 weeks - Admit for Clinical Observation Score 7 - 10: 72.7% MACE over next 6 weeks - Early Invasive Strategies Allergies: Allergies: Allergies Coded Allergies Type Severity Reaction Last Updated Verified cefditoren Allergy Severe Swelling 07/15/17 Yes Sulfa (Sulfonamide Antibiotics) Allergy Intermediate Swelling 07/15/17 Yes ciprofloxacin Allergy Intermediate Swelling 07/15/17 Yes sulfamethoxazole Allergy Intermediate Swelling 07/15/17 Yes trimethoprim Allergy Intermediate Swelling 07/15/17 Yes lamotrigine Adverse Reaction Intermediate THRUSH 07/15/17 Yes Physical Exam: PE: Constitutional: Well developed, well nourished, no acute distress, non-toxic appearance. [] HENT: Normocephalic, atraumatic, bilateral external ears normal, oropharynx moist, no oral exudates, nose normal. [] Eyes: PERRLA, EOMI, conjunctiva normal, no discharge. [] Neck: Normal range of motion, no tenderness, supple, no stridor. [] Cardiovascular:Heart rate regular rhythm, no murmur [] Lungs & Thorax: Bilateral breath sounds clear to auscultation [] Abdomen: Soft, nontender, nonacute abdomen. No involuntary guarding or rigidity noted. No acute peritonitis. : Pelvic exam chaperoned by DAYTON Lubin. Minimal active bleeding noted. Mild oozing from the external cervical os. No clots visualized. Negative CMT. Skin: Warm, dry, no erythema, no rash. [] Back: No tenderness, no CVA tenderness. [] Extremities: No tenderness, no cyanosis, no clubbing, ROM intact, no edema. [] Neurologic: Alert and oriented X 3, normal motor function, normal sensory function, no focal deficits noted. [] Psychologic: Affect normal, judgement normal, mood normal. [] Current Patient Data: Labs: Laboratory Tests Test 12/29/19 00:56 POC Urine HCG, Qualitative Hcg negative (Negative) Vital Signs: Vital Signs Date Time Temp Pulse Resp B/P (MAP) Pulse Ox O2 Delivery O2 Flow Rate FiO2 12/29/19 00:13 98.1 95 16 147/93 (111) 97 Room Air 98.1 EKG: EKG: [] Radiology/Procedures: Radiology/Procedures: [facility] [address] [place] [address] IMAGING REPORT Signed PATIENT: BRISA COLLIER MACCOUNT: [id number] : 1980 LOCATION: ER AGE: 39 SEX: F EXAM STATUS: REG ER ORD. PHYSICIAN: STONEY LOPES DO REASON: lower abdominal pain with vag bleeding PROCEDURE: PELVIS W/TV Pelvic ultrasound, transabdominal and transvaginal: Reason for examination: Low abdominal pain and vaginal bleeding. Transabdominally, the uterus and adnexa are not optimally visualized. Transvaginally, the uterus measures 7.8 x 3.5 x 4.0 cm in greatest dimensions. Endometrium is not thickened at 6 mm. Focal uterine mass is not seen. There does appear to be a small 1.2 x 0.7 x 0.8 cm mm hypoechoic nodule in the cervix. Left ovary is normal in size at 3.7 x 1.8 x 2.0 cm with good vascular flow and shows several small cystic structures with the largest measuring 2.1 x 1.3 cm in greatest dimension. The right ovary surgically absent. IMPRESSION: 1.2 x 0.7 x 0.8 cm nodule in the cervix. Cysts measuring up to 2.1 cm in size in the left ovary. Electronically signed by: Arnav Hermosillo MD (12/29/2019 2:31 AM) [facility] DICTATED and SIGNED BY: ARNAV HERMOSILLO MD DATE: 12/29/19230 [] Course & Med Decision Making: Course & Med Decision Making Pertinent Labs and Imaging studies reviewed. (See chart for details) [] Patient is a well-appearing 39-year-old female presents with chief complaint of vaginal bleeding. Initial vital signs unremarkable including non-tachycardic non-hypotensive. Exam noted above. Ultrasound imaging does reveal hypoechoic structure near the cervix. Unclear whether this represents blood clot versus mass. On pelvic exam no blood clot or tissue could be visualized in the external cervical os. Remainder pelvic ultrasound unremarkable. Labs been unremarkable including a hemoglobin 11.9. Repeat examination her abdomen remains benign. Her vital signs remained stable. Overall I do feel she is appropriate for discharge home. She does state that she has an appoint with her GAMING DIRECTOR 1 week. I encouraged her to keep this appointment. Return precautions discussed and understood. Stable for discharge home. Tyree Disclaimer: Tyree Disclaimer: This electronic medical record was generated, in whole or in part, using a voice recognition dictation system. Departure Departure Impression: Primary Impression: Vaginal bleeding Disposition: HOME, SELF-CARE Condition: STABLE Referrals: FREDDY BRODY MD (PCP) Patient Instructions: Abnormal Uterine Bleeding Additional Instructions: Please follow-up with your GAMING DIRECTOR next week at your regularly scheduled appointment. Scripts Naproxen (NAPROXEN) 500 Mg Tablet 1 TAB PO BID for pain for 10 Days, #20 TAB 0 Refills Prov: STONEY LOPES DO 12/29/19 Justicifation of Admission Dx: Justifications for Admission: Justification of Admission Dx: N/A STONEY LOPES DO Dec 29, 2019 01:03
[2019-12-29 01:09] LABS: BASO % 1 % (0-3); EOS # 0.4 x10^3/uL (0.0-0.7); EOS % 4 % (0-3); HEMATOCRIT 36.5 % (36.0-47.0); HEMOGLOBIN 11.9 g/dL (12.0-15.5); LYMPH # 2.1 x10^3/uL (1.0-4.8); LYMPH % 27 % (24-48); MEAN CORPUSCULAR HEMOGLOBIN 23 pg (25-35); MEAN CORPUSCULAR HGB CONC 33 g/dL (31-37); MEAN CORPUSCULAR VOLUME 70 fL (79-100); MONO # 0.8 x10^3/uL (0.0-1.1); MONO % 10 % (0-9); NEUT # 4.7 x10^3/uL (1.8-7.7); NEUT % 59 % (31-73); PLATELET COUNT 228 x10^3/uL (140-400); RED BLOOD COUNT 5.25 x10^6/uL (3.50-5.40); WHITE BLOOD COUNT 8.1 x10^3/uL (4.0-11.0)
[2019-12-29 01:19] LABS: CALCIUM 8.8 mg/dL (8.5-10.1); CREATININE 0.9 mg/dL (0.6-1.0); GFR 84.8; POTASSIUM 3.6 mmol/L (3.5-5.1)
[2019-12-29 01:39] LABS: BILIRUBIN,URINE NEGATIVE (NEG); CLARITY,URINE TURBID; COLOR,URINE AMBER; NITRITE,URINE NEGATIVE (NEG); PH,URINE 5.5 (<5.0-8.0); PROTEIN,URINE 30 mg/dL (NEG-TRACE)
[2019-12-29 01:51] LABS: BACTERIA,URINE 0 /HPF (0-FEW); RBC,URINE TNTC /HPF (0-2); WBC,URINE 0 /HPF (0-4)
[2019-12-29 01:52] LABS: AMORPHOUS SEDIMENT,UR PRESENT /HPF
[2019-12-29] MEDS ORDERED: KETOROLAC 15 MG/ML VIAL. IVP ONE (02:00)
--- NOTE | 2019-12-29 02:34 | RAD ---
Pelvic ultrasound, transabdominal and transvaginal: Reason for examination: Low abdominal pain and vaginal bleeding. Transabdominally, the uterus and adnexa are not optimally visualized. Transvaginally, the uterus measures 7.8 x 3.5 x 4.0 cm in greatest dimensions. Endometrium is not thickened at 6 mm. Focal uterine mass is not seen. There does appear to be a small 1.2 x 0.7 x 0.8 cm mm hypoechoic nodule in the cervix. Left ovary is normal in size at 3.7 x 1.8 x 2.0 cm with good vascular flow and shows several small cystic structures with the largest measuring 2.1 x 1.3 cm in greatest dimension. The right ovary surgically absent. IMPRESSION: 1.2 x 0.7 x 0.8 cm nodule in the cervix. Cysts measuring up to 2.1 cm in size in the left ovary. Electronically signed by: Erin Salamanca MD (12/29/2019 2:31 AM) TODD
[2019-12-29] MEDS ORDERED: NAPR-514 PO (02:39)
[2019-12-29 02:53] VITALS: BP 136/76
[2019-12-29 04:32] LABS: HYPOCHROMIA MOD; MICROCYTOSIS MARKED; PLT ESTIMATE ADEQUATE (ADEQUATE)
== END 2019-12-29 03:07 | disposition home or self-care (01) ==
LOC: ER 00:01
DX: N93.9 Abnormal uterine and vaginal bleeding, unspecified (principal); K21.9 Gastro-esophageal reflux disease without esophagitis; E78.00 Pure hypercholesterolemia, unspecified; I10 Essential (primary) hypertension; Z87.891 Personal history of nicotine dependence; Z88.1 Allergy status to other antibiotic agents; Z88.2 Allergy status to sulfonamides; Z88.8 Allergy status to other drugs, medicaments and biological substances
CPT/HCPCS: 36415; 76830; 76856; 80048; 81001; 81025; 85025; 96374; 99284; J1885

== ENCOUNTER → 2021-02-12 | Outpatient (CLI) | payer MEDICAID ==
[~2021-02-12] MED LIST changes: +CYCL10TA19; -CYCL10TA2; -DULO60CA6 PO; +DULO60CA7 PO; +NAPR-514 PO; -OMEP40CA45; -OMEP40CA45 PO; +OMEP40CA7; +OMEP40CA7 PO
--- NOTE | 2021-02-12 11:25 | RAD ---
EXAM: Abdomen sonogram. HISTORY: Pain. TECHNIQUE: Sonographic imaging of the abdomen was performed. COMPARISON: None. FINDINGS: The liver is normal in size. No focal hepatic lesion is seen. The gallbladder is unremarkab le. The common bile duct is normal in caliber. The kidneys are normal in size. There is no hydronephr osis. There is no solid or cystic renal lesion. The spleen and pancreas are unremarkable. The aorta a nd vena cava are partially obscured due to bowel gas. IMPRESSION: No acute sonographic finding. Electronically signed by: Harriett Adame MD (02/12/2021 11:23 AM) [id number]
== END ==
LOC: US 10:44
PROVIDERS: ATTEND Family Medicine
DX: R10.11 Right upper quadrant pain (principal)
CPT/HCPCS: 76700